=== PATIENT | male | born 1935 | race Caucasian/White ===

== ENCOUNTER 2017-11-11 08:19 | Inpatient (IN) | payer MEDICARE ==
[~2017-11-11] VITALS: Ht 175.3 cm; Wt 85.9 kg
[~2017-11-11 08:19] MED LIST: ATOR40TA PO; Aspirin EC81 MG PO; Avapro300 MG PO; CALCA500CH; CARV6.25 PO; CYAN500 PO; FERR325 PO; Flonase 0.05% N16 GM; Glimepiride4 MG PO; META800 PO; METF500C PO; TAMS.4ER PO; TRADJENTA5 MG PO; VITAMIN D-32000 UNIT; Valtrex1000 MG PO
[2017-11-11 09:23] LABS: Hematocrit 31.6 % (37.0-53.0); Hemoglobin 10.6 g/dL (13.5-17.5); Mean Corpuscular HGB 32.9 pg (26.0-34.0); Mean Corpuscular HGB Conc 33.5 g/dL (31.5-36.5); Mean Corpuscular Volume 98 fL (80-100); Mean Platelet Volume 9.1 fL (9.1-12.4); Platelet Count 189 K/mm3 (150-400); RDW Coefficient Variation 12.7 % (11.7-14.2); RDW Standard Deviation 45.6 fL (35.1-46.3); Red Blood Cell Count 3.22 M/mm3 (4.30-5.90); White Blood Cell Count 5.15 K/mm3 (4.00-11.30)
[2017-11-11 09:38] LABS: Alanine Aminotransfer (ALT/SGP 30 U/L (12-78); Albumin, Blood 3.5 g/dL (3.4-5.0); Albumin/Globulin Ratio 1.1 (0.8-1.8); Alk Phos 72 U/L (50-136); Anion Gap 10 mmol/L (6-16); Aspartate Aminotrans (AST/SGOT 21 U/L (12-37); Bilirubin, Total 0.5 mg/dL (0.1-1.0); Blood Urea Nitrogen 12 mg/dL (8-24); Bun/Creatinine Ratio 13.1 (12.0-20.0); CO2, Blood 24 mmol/L (21-32); Calcium, Blood 8.1 mg/dL (8.5-10.1); Chloride, Blood 98 mmol/L (98-108); Creatinine, Blood 0.92 mg/dL (0.60-1.20); Globulin, Blood 3.1 g/dL (2.2-4.0); Glomerular Filtration Rate >60 (60-); Glucose, Blood 123 mg/dL (70-99); International Normalized Ratio 1.07; Potassium, Blood 4.4 mmol/L (3.5-5.5); Prothrombin Time Results 11.1 Sec (9.7-11.5); Sodium, Blood 132 mmol/L (136-145); Total Protein, Blood 6.6 g/dL (6.4-8.2)
[2017-11-11 09:41] LABS: BAND PERCENT MAN 7 % (0-8); BASOPHILS PERCENT MAN 0 % (0-2); EOSINOPHILS ABSOLUTE MAN 0.05 K/mm3 (0.00-0.68); EOSINOPHILS PERCENT MAN 1 % (0-6); LYMPHOCYTES ABSOLUTE MAN 0.15 K/mm3 (0.84-5.20); LYMPHOCYTES PERCENT MAN 3 % (21-46); MONOCYTES PERCENT MAN 2 % (4-13); NEUTROPHILS ABSOLUTE MAN 4.84 K/mm3 (1.96-9.15); SEG NEUTROPHILS PERCENT MAN 87 % (41-73); TOTAL CELLS COUNTED 100
[2017-11-11 10:15] LABS: Source, Urine Clean Catch
[2017-11-11 10:21] LABS: Bilirubin, Urine Neg (Neg); Blood, Urine 5+ (Neg); Glucose Qualitative, Urine 1+ (Neg); Ketones, Urine Neg (Neg); Leukocyte Esterase, Urine 3+ (Neg); Nitrite, Urine Neg (Neg); Protein, Urine 2+ (Neg); Urobilinogen, Urine NORM (Normal)
[2017-11-11 10:29] LABS: Appearance, Urine Cloudy (Clear); Color, Urine Yellow (P-Yellow)
[2017-11-11 10:30] LABS: Bacteria Many /hpf
[2017-11-11 10:31] LABS: Red Blood Cells, Urine 25-50 /hpf (0-2)
[2017-11-11 10:33] LABS: Squamous Epithelial Cells Many /hpf (Few)
[2017-11-11 11:17] LABS: Source, Urine Catheter
[2017-11-11 11:20] LABS: Appearance, Urine Hazy (Clear); Bilirubin, Urine Neg (Neg); Blood, Urine 4+ (Neg); Color, Urine Yellow (P-Yellow); Glucose Qualitative, Urine 1+ (Neg); Ketones, Urine 1+ (Neg); Leukocyte Esterase, Urine 1+ (Neg); Nitrite, Urine Neg (Neg); Protein, Urine 2+ (Neg); Specific Gravity, Urine 1.015 (1.003-1.022); Urobilinogen, Urine NORM (Normal)
[2017-11-11 11:27] LABS: Hyaline Casts 0-2 /lpf (0-2)
[2017-11-11 11:29] LABS: Bacteria Rare /hpf; Squamous Epithelial Cells Rare /hpf (Few)
[2017-11-12 05:12] LABS: BASOPHILS ABSOLUTE AUTO 0.01 K/mm3 (0.00-0.23); BASOPHILS PERCENT AUTO 0 % (0-2); EOSINOPHILS PERCENT AUTO 3 % (0-6); Hematocrit 28.9 % (37.0-53.0); Hemoglobin 9.7 g/dL (13.5-17.5); IMMATURE GRAN ABSOLUTE AUTO 0.02 K/mm3 (0.00-0.10); IMMATURE GRAN PERCENT AUTO 1 % (0-1); LYMPHOCYTES ABSOLUTE AUTO 0.81 K/mm3 (0.84-5.20); LYMPHOCYTES PERCENT AUTO 25 % (21-46); MONOCYTES ABSOLUTE AUTO 0.35 K/mm3 (0.16-1.47); MONOCYTES PERCENT AUTO 11 % (4-13); Mean Corpuscular HGB 32.2 pg (26.0-34.0); Mean Corpuscular HGB Conc 33.6 g/dL (31.5-36.5); Mean Corpuscular Volume 96 fL (80-100); Mean Platelet Volume 8.6 fL (9.1-12.4); NEUTROPHILS ABSOLUTE AUTO 1.98 K/mm3 (1.96-9.15); NEUTROPHILS PERCENT AUTO 61 % (41-73); Platelet Count 160 K/mm3 (150-400); RDW Coefficient Variation 12.8 % (11.7-14.2); RDW Standard Deviation 45.7 fL (35.1-46.3); Red Blood Cell Count 3.01 M/mm3 (4.30-5.90); White Blood Cell Count 3.27 K/mm3 (4.00-11.30)
[2017-11-12 05:55] LABS: Anion Gap 10 mmol/L (6-16); Blood Urea Nitrogen 10 mg/dL (8-24); Bun/Creatinine Ratio 12.8 (12.0-20.0); CO2, Blood 25 mmol/L (21-32); Calcium, Blood 7.8 mg/dL (8.5-10.1); Chloride, Blood 95 mmol/L (98-108); Creatinine, Blood 0.78 mg/dL (0.60-1.20); Glomerular Filtration Rate >60 (60-); Glucose, Blood 179 mg/dL (70-99); Potassium, Blood 4.1 mmol/L (3.5-5.5); Sodium, Blood 130 mmol/L (136-145)
[2017-11-13 05:23] LABS: BASOPHILS PERCENT AUTO 0 % (0-2); EOSINOPHILS ABSOLUTE AUTO 0.14 K/mm3 (0.00-0.68); EOSINOPHILS PERCENT AUTO 7 % (0-6); Hematocrit 27.2 % (37.0-53.0); Hemoglobin 9.3 g/dL (13.5-17.5); IMMATURE GRAN ABSOLUTE AUTO 0.01 K/mm3 (0.00-0.10); IMMATURE GRAN PERCENT AUTO 1 % (0-1); LYMPHOCYTES ABSOLUTE AUTO 0.72 K/mm3 (0.84-5.20); LYMPHOCYTES PERCENT AUTO 35 % (21-46); MONOCYTES ABSOLUTE AUTO 0.18 K/mm3 (0.16-1.47); MONOCYTES PERCENT AUTO 9 % (4-13); Mean Corpuscular HGB 32.5 pg (26.0-34.0); Mean Corpuscular HGB Conc 34.2 g/dL (31.5-36.5); Mean Corpuscular Volume 95 fL (80-100); Mean Platelet Volume 9.1 fL (9.1-12.4); NEUTROPHILS ABSOLUTE AUTO 1.01 K/mm3 (1.96-9.15); NEUTROPHILS PERCENT AUTO 49 % (41-73); Platelet Count 158 K/mm3 (150-400); RDW Coefficient Variation 12.6 % (11.7-14.2); RDW Standard Deviation 44.4 fL (35.1-46.3); Red Blood Cell Count 2.86 M/mm3 (4.30-5.90); White Blood Cell Count 2.06 K/mm3 (4.00-11.30)
[2017-11-13 05:42] LABS: Anion Gap 9 mmol/L (6-16); Blood Urea Nitrogen 7 mg/dL (8-24); Bun/Creatinine Ratio 10.4 (12.0-20.0); CO2, Blood 26 mmol/L (21-32); Calcium, Blood 8.1 mg/dL (8.5-10.1); Chloride, Blood 95 mmol/L (98-108); Creatinine, Blood 0.67 mg/dL (0.60-1.20); Glomerular Filtration Rate >60 (60-); Glucose, Blood 184 mg/dL (70-99); Potassium, Blood 4.1 mmol/L (3.5-5.5); Sodium, Blood 130 mmol/L (136-145)
[2017-11-13] MEDS ORDERED: SACC250C PO (11:07)
[2017-11-13] MEDS ORDERED: CEFP200 PO (11:07)
== END 2017-11-13 11:45 | disposition home or self-care (01) | DRG 871 ==
LOC: ER 08:19 → MEDS 12:07 → ENPENDDIS 11-13 10:43 → MEDS 11-13 11:45
PROVIDERS: Internal Medicine
DX: A41.9 Sepsis, unspecified organism (principal); G92 Toxic encephalopathy; E87.1 Hypo-osmolality and hyponatremia; E11.9 Type 2 diabetes mellitus without complications; K52.9 Noninfective gastroenteritis and colitis, unspecified; R65.20 Severe sepsis without septic shock; E78.5 Hyperlipidemia, unspecified; I10 Essential (primary) hypertension; N40.0 Benign prostatic hyperplasia without lower urinary tract symptoms; Z74.09 Other reduced mobility; E66.9 Obesity, unspecified; Z68.28 Body mass index [BMI] 28.0-28.9, adult; Z88.8 Allergy status to other drugs, medicaments and biological substances; Z85.46 Personal history of malignant neoplasm of prostate; Z87.891 Personal history of nicotine dependence; Z79.84 Long term (current) use of oral hypoglycemic drugs; Z79.82 Long term (current) use of aspirin; Z79.899 Other long term (current) drug therapy
CPT/HCPCS: 36415; 71046; 71260; 80048; 80053; 81001; 82947; 83605; 84145; 85007; 85025; 85027; 85379; 85610; 87040; 87086; 93005; 93010; 96361; 96365; 96366; 96375; 97116; 97161; 97165; 97535; 99285; G8978; G8979; G8987; G8988; J0456; J0696; J1650; J1956; J2405; J3490; J7030; J7050; J7120; P9612; Q9967

== ENCOUNTER → 2018-05-21 | Outpatient (CLI) | payer MEDICARE ==
[~2018-05-21] MED LIST changes: +CEFP200 PO; +SACC250C PO
== END | disposition home or self-care (01) ==
LOC: PLD 14:03 → LAB SHORT 14:03
DX: L91.8 Other hypertrophic disorders of the skin (principal)
CPT/HCPCS: 88304

== ENCOUNTER → 2019-05-08 | Outpatient (CLI) | payer MEDICARE ==
[~2019-05-08] MED LIST changes: +BASAGLAR K100 UNIT/1 SC; +Bactrim Ds Tab1 EACH PO; +Humalog Mi100 UNIT/4 SC; +LIOT5 PO; +METF500 PO; -METF500C PO; +TELM80 PO; +VITAMIN D32000 UNI1 PO
== END ==
LOC: LAB SHORT 11:46 → LAB 11:46
DX: N39.0 Urinary tract infection, site not specified (principal)
CPT/HCPCS: 87086

== ENCOUNTER 2019-05-15 08:22 | Inpatient (IN) | payer MEDICARE ==
[~2019-05-15] VITALS: Ht 175.3 cm; Wt 87.6 kg
[~2019-05-15 08:22] MED LIST changes: -BASAGLAR K100 UNIT/1 SC; -Bactrim Ds Tab1 EACH PO; -Humalog Mi100 UNIT/4 SC; -LIOT5 PO; -TELM80 PO; -VITAMIN D32000 UNI1 PO
[2019-05-15 09:11] LABS: BASOPHILS ABSOLUTE AUTO 0.01 K/mm3 (0.00-0.23); BASOPHILS PERCENT AUTO 0 % (0-2); EOSINOPHILS ABSOLUTE AUTO 0.02 K/mm3 (0.00-0.68); EOSINOPHILS PERCENT AUTO 1 % (0-6); Hemoglobin 8.9 g/dL (13.5-17.5); IMMATURE GRAN ABSOLUTE AUTO 0.02 K/mm3 (0.00-0.10); IMMATURE GRAN PERCENT AUTO 1 % (0-1); LYMPHOCYTES PERCENT AUTO 8 % (21-46); MONOCYTES ABSOLUTE AUTO 0.25 K/mm3 (0.16-1.47); MONOCYTES PERCENT AUTO 7 % (4-13); Mean Corpuscular HGB 32.8 pg (26.0-34.0); Mean Corpuscular HGB Conc 34.2 g/dL (31.5-36.5); Mean Corpuscular Volume 96 fL (80-100); NEUTROPHILS ABSOLUTE AUTO 3.07 K/mm3 (1.96-9.15); NEUTROPHILS PERCENT AUTO 84 % (41-73); Platelet Count 155 K/mm3 (150-400); RDW Coefficient Variation 12.8 % (11.7-14.2); RDW Standard Deviation 44.5 fL (35.1-46.3); Red Blood Cell Count 2.71 M/mm3 (4.30-5.90); White Blood Cell Count 3.67 K/mm3 (4.00-11.30)
[2019-05-15 09:24] LABS: Alanine Aminotransfer (ALT/SGP 33 U/L (12-78); Albumin, Blood 3.2 g/dL (3.4-5.0); Albumin/Globulin Ratio 1.2 (0.8-1.8); Alk Phos 60 U/L (50-136); Anion Gap 7 mmol/L (6-16); Aspartate Aminotrans (AST/SGOT 30 U/L (12-37); Bilirubin, Total 0.5 mg/dL (0.1-1.0); Blood Urea Nitrogen 10 mg/dL (8-24); Bun/Creatinine Ratio 12.2 (12.0-20.0); CO2, Blood 22 mmol/L (21-32); Calcium, Blood 8.1 mg/dL (8.5-10.1); Chloride, Blood 92 mmol/L (98-108); Creatinine, Blood 0.82 mg/dL (0.60-1.20); Globulin, Blood 2.7 g/dL (2.2-4.0); Glomerular Filtration Rate >60 (60-); Glucose, Blood 93 mg/dL (70-99); Potassium, Blood 4.6 mmol/L (3.5-5.5); Sodium, Blood 121 mmol/L (136-145); Total Protein, Blood 5.9 g/dL (6.4-8.2)
[2019-05-15] MEDS ORDERED: Bactrim Ds Tab1 EACH PO (09:56)
[2019-05-15 11:45] LABS: Calcium, Ionized (POC) 1.11 mmol/L (1.10-1.46); Chloride (POC) 88 mmol/L (98-108); Creatinine (POC) 0.9 mg/dL (0.8-1.3); Glucose (ISTAT POC) 93 mg/dL (70-99); Hemoglobin (POC) 8.8 g/dL (13.5-17.5); Potassium (POC) 4.7 mmol/L (3.5-5.5); Sodium (POC) 119 mmol/L (135-148); Total CO2 (POC) 23 mmol/L (21-32)
[2019-05-15 11:48] LABS: Source, Urine Clean Catch
[2019-05-15 12:03] LABS: Bilirubin, Urine Neg (Neg); Blood, Urine 3+ (Neg); Glucose Qualitative, Urine Neg (Neg); Ketones, Urine Neg (Neg); Leukocyte Esterase, Urine 1+ (Neg); Nitrite, Urine Neg (Neg); Protein, Urine 2+ (Neg); Urobilinogen, Urine NORM (Normal)
[2019-05-15 12:15] LABS: Appearance, Urine Hazy (Clear); Color, Urine Yellow (P-Yellow)
[2019-05-15 12:16] LABS: Bacteria Rare /hpf; Squamous Epithelial Cells Few /hpf (Few)
[2019-05-15] MEDS ORDERED: TELM80 PO (12:22)
[2019-05-15 13:07] LABS: Percent Saturation 14.6 % (20.0-50.0)
[2019-05-15 13:13] LABS: Prostate Specific Antigen 0.116 ng/mL (0.000-4.000)
[2019-05-15] MEDS ORDERED: VITAMIN D32000 UNI1 PO (14:38)
[2019-05-15] MEDS ORDERED: CYAN500 PO (14:38)
--- NOTE | 2019-05-15 15:57 | NUR ---
ASSUMED CARE: BED ALARM ON, PT RESTING IN BED. DISCUSSED WITH DR PATEL LATEST SODIUM RESULT. ORDERS FOR PT TO REMAIN SALINE LOCKED AT THIS TIME.
--- NOTE | 2019-05-15 18:03 | NUR ---
SHIFT SUMMARY: PT RESTING QUIETLY AT THIS TIME. WAS AT BEDSIDE BUT LEFT. BED ALARM ON. STATED HE WAS HAVING ABDOMINAL CRAMPING DUE TO DIARRHEA. ORDER FOR STOOL SAMPLE IF BECOMES AVAILABLE.
--- NOTE | 2019-05-16 03:54 | NUR ---
Shift summary: Pt has had good night and no c/o discomfort. Na = 119 and the MD was notified of this. Pt had one episode of diarhea but was unable to get sample. It all soaked into the attends. Pt incontinent of both urine and stool.
[2019-05-16 04:48] LABS: BASOPHILS ABSOLUTE AUTO 0.01 K/mm3 (0.00-0.23); BASOPHILS PERCENT AUTO 0 % (0-2); EOSINOPHILS ABSOLUTE AUTO 0.02 K/mm3 (0.00-0.68); EOSINOPHILS PERCENT AUTO 1 % (0-6); Hematocrit 29.9 % (37.0-53.0); Hemoglobin 10.3 g/dL (13.5-17.5); IMMATURE GRAN ABSOLUTE AUTO 0.03 K/mm3 (0.00-0.10); IMMATURE GRAN PERCENT AUTO 1 % (0-1); LYMPHOCYTES ABSOLUTE AUTO 0.39 K/mm3 (0.84-5.20); LYMPHOCYTES PERCENT AUTO 11 % (21-46); MONOCYTES ABSOLUTE AUTO 0.25 K/mm3 (0.16-1.47); MONOCYTES PERCENT AUTO 7 % (4-13); Mean Corpuscular HGB 32.6 pg (26.0-34.0); Mean Corpuscular HGB Conc 34.4 g/dL (31.5-36.5); Mean Corpuscular Volume 95 fL (80-100); Mean Platelet Volume 9.1 fL (9.1-12.4); NEUTROPHILS ABSOLUTE AUTO 2.95 K/mm3 (1.96-9.15); NEUTROPHILS PERCENT AUTO 81 % (41-73); Platelet Count 173 K/mm3 (150-400); RDW Coefficient Variation 12.8 % (11.7-14.2); RDW Standard Deviation 44.3 fL (35.1-46.3); Red Blood Cell Count 3.16 M/mm3 (4.30-5.90); White Blood Cell Count 3.65 K/mm3 (4.00-11.30)
[2019-05-16 05:17] LABS: Alanine Aminotransfer (ALT/SGP 40 U/L (12-78); Albumin, Blood 3.5 g/dL (3.4-5.0); Albumin/Globulin Ratio 1.1 (0.8-1.8); Alk Phos 77 U/L (50-136); Anion Gap 11 mmol/L (6-16); Aspartate Aminotrans (AST/SGOT 36 U/L (12-37); Bilirubin, Total 0.7 mg/dL (0.1-1.0); Blood Urea Nitrogen 11 mg/dL (8-24); Bun/Creatinine Ratio 14.1 (12.0-20.0); CO2, Blood 23 mmol/L (21-32); Calcium, Blood 8.5 mg/dL (8.5-10.1); Chloride, Blood 88 mmol/L (98-108); Creatinine, Blood 0.78 mg/dL (0.60-1.20); Globulin, Blood 3.1 g/dL (2.2-4.0); Glomerular Filtration Rate >60 (60-); Glucose, Blood 168 mg/dL (70-99); Potassium, Blood 3.9 mmol/L (3.5-5.5); Sodium, Blood 122 mmol/L (136-145); Total Protein, Blood 6.6 g/dL (6.4-8.2)
[2019-05-16 10:18] LABS: Creatine Kinase MB 7.1 ng/mL (0.0-3.6); Creatine Kinase MB Index 1.5 (0.0-4.0)
[2019-05-16 16:07] LABS: Adenovirus F 40/41 Not Detected (NOT DETECT); Astrovirus Not Detected (NOT DETECT); Campylobacter Sp Not Detected (NOT DETECT); Cryptosporidium Not Detected (NOT DETECT); Cyclospora Cayetanensis Not Detected (NOT DETECT); E. Coli O157 Not Detected (NOT DETECT); Entamoeba Histolytica Not Detected (NOT DETECT); Enteroaggregative E. coli-EAEC Not Detected (NOT DETECT); Enteropathogenic E. coli-EPEC Not Detected (NOT DETECT); Enterotoxigenic E. coli-ETEC Not Detected (NOT DETECT); Giardia Lamblia Not Detected (NOT DETECT); Norovirus GI/GII Not Detected (NOT DETECT); Plesiomonas Shigelloides Not Detected (NOT DETECT); Rotavirus A Not Detected (NOT DETECT); Salmonella Sp Not Detected (NOT DETECT); Shiga Toxin-prod E. coli-STEC Not Detected (NOT DETECT); Shigella/Enteroin E. coli-EIEC Not Detected (NOT DETECT); Vibrio Cholerae Not Detected (NOT DETECT); Vibrio Sp Not Detected (NOT DETECT); Yersinia Enterocolitica Not Detected (NOT DETECT)
[2019-05-16 16:08] LABS: Sapovirus Not Detected (NOT DETECT)
--- NOTE | 2019-05-16 18:09 | NUR ---
SHIFT SUMMARY PATIENT IS A&OX3 WITH DELAYED SPEECH AT TIMES. PT IS VERY WEAK BUT ABLE TO TRANSFER TO THE COMMODE WITH GAIT BELT AND 2 ASSIST. PT INCONTINENT OF BOWEL AND BLADDER MOST OF THE TIME. URINE SAMPLE WAS OBTAINED IN CLEAN URINAL. PT HAVING BASICALLY LIQUID STOOL, SAMPLE OBTAINED IN HAT IN COMMODE, MAY HAVE BEEN SLIGHTLY CONTAMINATED WITH URINE. DR PATEL AWARE OF STOOL, IMODIUM ORDERED. PTS STATES HE HAS LOOSE STOOLS CHRONICALLY THAT VARIES WITH WHAT HE EATS/WHAT MEDS HE'S TAKING AND STATES THAT PEPTO BISMOL OR MEDS SIMILAR TO IMODIUM HAS HELPED. INNER BUTTOCKS ARE SLIGHTLY RAW AND REDDENED, SITE CLEANED AND BLUE CREAM APPLIED. LACTIC ACID WAS CHECKED TWICE, BOTH RESULTED 2.3. 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 DM2 MEDS DISCONTINUED, HUMALOG AND CBG CHECKS ORDERED AC. PT HAS ABRASION TO L ELBOW, BANDAIDS C/D/I.
--- NOTE | 2019-05-17 03:49 | NUR ---
Shift summary: Pt slept well overnight with no c/o discomfort. Pt alert, oriented and appropriate last pm. Pt remains a 1-2 person asist to get to bedside commode. No episodes of diarhea last pm.
[2019-05-17 05:49] LABS: Anion Gap 8 mmol/L (6-16); Blood Urea Nitrogen 15 mg/dL (8-24); Bun/Creatinine Ratio 18.6 (12.0-20.0); CO2, Blood 24 mmol/L (21-32); Calcium, Blood 8.2 mg/dL (8.5-10.1); Chloride, Blood 90 mmol/L (98-108); Creatinine, Blood 0.81 mg/dL (0.60-1.20); Free Thyroxine 1.17 ng/dL (0.70-1.60); Glomerular Filtration Rate >60 (60-); Glucose, Blood 157 mg/dL (70-99); Potassium, Blood 3.4 mmol/L (3.5-5.5); Sodium, Blood 122 mmol/L (136-145)
[2019-05-17 05:54] LABS: Triiodothyronine, Free 1.61 pg/mL (2.18-3.98)
--- NOTE | 2019-05-17 17:12 | NUR ---
SHIFT SUMMARY PATIENT IS ALERT AND ORIENTED X4 TODAY, USING CALL BUTTON APPROPRIATELY. HE SEEMS MORE MOTIVATED TO GET UP/DO EXERCISES INSTRUCTED BY YASH. THE DAY PROGRESSED, PT BECAME BETTER ABLE TO WALK TO THE BATHROOM WITH FWW AND GAIT BELT WITH 1 PERSON CONTACT GUARD ASSIST. PT WILL STILL LEAN BACK AT TIMES AND COULD LOSE BALANCE. PT HAD A SMALL AMOUNT OF LOOSE STOOL MULTIPLE TIMES TODAY, IMODIUM GIVEN. BLUE CREAM APPLIED TO BUTTOCKS TWICE. PT'S VISITED DURING LUNCH AND PT'S AND PT WAS EDUCATED ON HOW TO USE INSULIN PEN. ALL STEPS EXPLAINED AND DEMONSTRATED TO PT'S , SLIDING SCALE IN CHART SHOWN TO PT'S .
--- NOTE | 2019-05-18 04:16 | NUR ---
Shift summary: Pt was able to sleep most of shift with no c/o discomfort. Pt up to bathroom x2 during night. Pt only requiring 1 person assist with gait belt. Pt states he's feeling stronger. Pt alert, oriented and appropriate. VSS.
[2019-05-18 04:35] LABS: BASOPHILS ABSOLUTE AUTO 0.01 K/mm3 (0.00-0.23); BASOPHILS PERCENT AUTO 0 % (0-2); EOSINOPHILS ABSOLUTE AUTO 0.14 K/mm3 (0.00-0.68); EOSINOPHILS PERCENT AUTO 4 % (0-6); Hematocrit 26.4 % (37.0-53.0); Hemoglobin 9.4 g/dL (13.5-17.5); IMMATURE GRAN ABSOLUTE AUTO 0.02 K/mm3 (0.00-0.10); IMMATURE GRAN PERCENT AUTO 1 % (0-1); LYMPHOCYTES ABSOLUTE AUTO 0.85 K/mm3 (0.84-5.20); LYMPHOCYTES PERCENT AUTO 24 % (21-46); MONOCYTES PERCENT AUTO 11 % (4-13); Mean Corpuscular HGB 32.3 pg (26.0-34.0); Mean Corpuscular HGB Conc 35.6 g/dL (31.5-36.5); Mean Platelet Volume 9.1 fL (9.1-12.4); NEUTROPHILS ABSOLUTE AUTO 2.15 K/mm3 (1.96-9.15); NEUTROPHILS PERCENT AUTO 60 % (41-73); Platelet Count 163 K/mm3 (150-400); RDW Coefficient Variation 12.7 % (11.7-14.2); RDW Standard Deviation 42.5 fL (35.1-46.3); Red Blood Cell Count 2.91 M/mm3 (4.30-5.90); White Blood Cell Count 3.57 K/mm3 (4.00-11.30)
[2019-05-18 04:38] LABS: Mean Corpuscular Volume 91 fL (80-100)
[2019-05-18 04:54] LABS: Anion Gap 10 mmol/L (6-16); Blood Urea Nitrogen 14 mg/dL (8-24); Bun/Creatinine Ratio 19.7 (12.0-20.0); CO2, Blood 23 mmol/L (21-32); Calcium, Blood 8.7 mg/dL (8.5-10.1); Chloride, Blood 92 mmol/L (98-108); Creatinine, Blood 0.71 mg/dL (0.60-1.20); Glomerular Filtration Rate >60 (60-); Glucose, Blood 229 mg/dL (70-99); Potassium, Blood 3.5 mmol/L (3.5-5.5); Sodium, Blood 125 mmol/L (136-145)
--- NOTE | 2019-05-18 13:20 | NUR ---
NEW SKIN TEAR/BRUISE 1255 - PATIENT AMBULATED TO BATHROOM WITH FWW AND 1 ASSIST -CONTACT GUARD. PATIENT WAS TURNING/SITTING DOWN ON TOILET AND FELL BACK, HITTING HIS BACK ON TOILET PIPES BEHIND SEAT. IT LEFT A SLIGHT SCRAPE/INDENTATION ON HIS MID LEFT BACK AND WILL PROBABLY FORM A BRUISE. THERE IS ALSO A SMALL SKIN TEAR ON THE RIGHT OUTER FOREARM, ABOUT 1 INCH BY 1/2 INCH. SITE CLEANED, TORN SKIN PLACED BACK INTO PLACE. ABX OINTMENT AND BANDAID APPLIED. PT DENIES ANY PAIN AT THIS TIME. PATIENT'S AWARE. NEON PUMPER NOTIFIED.
--- NOTE | 2019-05-18 19:18 | NUR ---
SHIFT SUMMARY PATIENT A&OX4. SEE NOTE ABOUT AMBULATION AND NEW WOUNDS TODAY. SODIUM LEVEL IMPROVED TO 125. BLOOD SUGARS HAVE BEEN HIGH TODAY, SCHEDULED SS INSULIN GIVEN. PATIENT AND SHOWN HOW TO PREP AND ADMINISTER INSULIN FROM PEN. PATIENT ONLY EATING ABOUT HALF OR LESS OF MEALS. PATIENT USING CALL LIGHT APPROPRIATELY.
--- NOTE | 2019-05-19 04:17 | NUR ---
Shift summary: Pt states he's feeling stronger. VSS. No c/o discomfort. Slept most of night. No episodes of diarhea. Pt is a one person assist. Pt anticipating a probable d/c in am.
[2019-05-19 06:02] LABS: Anion Gap 7 mmol/L (6-16); Blood Urea Nitrogen 11 mg/dL (8-24); Bun/Creatinine Ratio 17.6 (12.0-20.0); CO2, Blood 26 mmol/L (21-32); Calcium, Blood 8.5 mg/dL (8.5-10.1); Chloride, Blood 94 mmol/L (98-108); Creatinine, Blood 0.62 mg/dL (0.60-1.20); Glomerular Filtration Rate >60 (60-); Glucose, Blood 220 mg/dL (70-99); Potassium, Blood 3.9 mmol/L (3.5-5.5); Sodium, Blood 127 mmol/L (136-145)
--- NOTE | 2019-05-19 07:23 | NUR ---
ASSUMED CARE OF PT- RECIEVED REPORT WITH NIGHT RN COCO. PT SLEEPING SOUNDLY AT SHIFT CHANGE. PER REPORT PT HAS BEEN ASKING TO GO HOME FOR A DAY OR SO. WAS ADMITTED FOR LOW SODIUM. PT SODIUM HAS COME UP BUT MAY NOT REACH THE NORMAL RANGE. POSSIBLE DC PER REPORT. WILL SPEAK TO DR ON MORNING ROUNDS FOR CLARIFICATION.
[2019-05-19] MEDS ORDERED: BASAGLAR K100 UNIT/1 SC (13:35)
[2019-05-19] MEDS ORDERED: Humalog Mi100 UNIT/4 SC (13:36)
[2019-05-19] MEDS ORDERED: LIOT5 PO (13:38)
--- NOTE | 2019-05-19 14:59 | NUR ---
DISCHARGE NOTE- PT DISCHARGED HOME WITH HOME HEALTH. PT SPOUSE PRESENT FOR DISCHARGE TEACHING PROVIDED BY DRY HEAT CABINET ATTENDANT LORI. PT WAS ESCORTED OUT VIA W/C BY STAFF. IV DC'D AT THE TIME OF DISCHARGE. MEDS FAXED TO [facility] PER PT REQUEST D/T CRISTOPHER CLOSURES.
== END 2019-05-19 14:12 | disposition home health service (06) | DRG 643 ==
LOC: ER 08:22 → MEDS 08:23 → ENPENDDIS 05-19 11:06 → MEDS 05-19 14:12
PROVIDERS: Emergency Medicine; ADMIT Internal Medicine
DX: E22.2 Syndrome of inappropriate secretion of antidiuretic hormone (principal); G92 Toxic encephalopathy; E87.2 Acidosis; E11.9 Type 2 diabetes mellitus without complications; E03.9 Hypothyroidism, unspecified; D63.8 Anemia in other chronic diseases classified elsewhere; D50.9 Iron deficiency anemia, unspecified; Z85.46 Personal history of malignant neoplasm of prostate; E78.5 Hyperlipidemia, unspecified; I10 Essential (primary) hypertension; Z87.891 Personal history of nicotine dependence; G25.71 Drug induced akathisia; T37.0X5A Adverse effect of sulfonamides, initial encounter; Z87.440 Personal history of urinary (tract) infections; E87.6 Hypokalemia
CPT/HCPCS: 0097U; 36415; 51798; 71046; 80047; 80048; 80053; 81001; 82550; 82553; 82728; 82947; 83540; 83550; 83605; 83930; 83935; 84300; 84439; 84481; 85014; 85025; 87086; 93005; 93010; 96372; 97110; 97116; 97162; 97530; 99284-25; G0103; G0378; J1650; J7030

== ENCOUNTER → 2019-07-17 | Outpatient (CLI) | payer MEDICARE ==
[~2019-07-17] MED LIST changes: +BASAGLAR K100 UNIT/1 SC; +Bactrim Ds Tab1 EACH PO; +Humalog Mi100 UNIT/4 SC; +LIOT5 PO; +TELM80 PO; +VITAMIN D32000 UNI1 PO
[2019-07-17 15:22] LABS: Creatinine Urine 62.3 mg/dL (27.00-270.00); Protein, Urine Quantitative 11.3 mg/dL (0.0-11.9)
[2019-07-17 15:26] LABS: Microalbumin, Urine Quant. 73.4 mg/L (0.000-20.000)
== END | disposition home or self-care (01) ==
LOC: LAB SHORT 11:05 → LAB 11:05
PROVIDERS: Internal Medicine Nephrology
DX: N18.2 Chronic kidney disease, stage 2 (mild) (principal); D63.1 Anemia in chronic kidney disease; N25.81 Secondary hyperparathyroidism of renal origin; E55.9 Vitamin D deficiency, unspecified; E78.00 Pure hypercholesterolemia, unspecified; N40.1 Benign prostatic hyperplasia with lower urinary tract symptoms; D51.8 Other vitamin B12 deficiency anemias; R76.9 Abnormal immunological finding in serum, unspecified; R94.5 Abnormal results of liver function studies; R94.6 Abnormal results of thyroid function studies
CPT/HCPCS: 81050; 82043; 82570; 84156; 84300

== ENCOUNTER 2019-09-21 08:42 | Emergency (ER) | payer MEDICARE ==
[~2019-09-21] VITALS: Ht 175.3 cm; Wt 79.4 kg
[2019-09-21 09:00] LABS: Calcium, Ionized (POC) 1.12 mmol/L (1.10-1.46); Chloride (POC) 95 mmol/L (98-108); Glucose (ISTAT POC) 211 mg/dL (70-99); Hemoglobin (POC) 11.9 g/dL (13.5-17.5); Potassium (POC) 4.2 mmol/L (3.5-5.5); Sodium (POC) 129 mmol/L (135-148); Total CO2 (POC) 24 mmol/L (21-32)
[2019-09-21 09:15] LABS: BASOPHILS ABSOLUTE AUTO 0.02 K/mm3 (0.00-0.23); BASOPHILS PERCENT AUTO 0 % (0-2); EOSINOPHILS ABSOLUTE AUTO 0.13 K/mm3 (0.00-0.68); EOSINOPHILS PERCENT AUTO 2 % (0-6); Hematocrit 35.5 % (37.0-53.0); Hemoglobin 11.4 g/dL (13.5-17.5); IMMATURE GRAN ABSOLUTE AUTO 0.02 K/mm3 (0.00-0.10); IMMATURE GRAN PERCENT AUTO 0 % (0-1); LYMPHOCYTES ABSOLUTE AUTO 1.07 K/mm3 (0.84-5.20); LYMPHOCYTES PERCENT AUTO 17 % (21-46); MONOCYTES ABSOLUTE AUTO 0.41 K/mm3 (0.16-1.47); MONOCYTES PERCENT AUTO 7 % (4-13); Mean Corpuscular HGB 30.9 pg (26.0-34.0); Mean Corpuscular HGB Conc 32.1 g/dL (31.5-36.5); Mean Corpuscular Volume 96 fL (80-100); Mean Platelet Volume 9.1 fL (9.1-12.4); NEUTROPHILS ABSOLUTE AUTO 4.68 K/mm3 (1.96-9.15); NEUTROPHILS PERCENT AUTO 74 % (41-73); Platelet Count 194 K/mm3 (150-400); RDW Coefficient Variation 12.8 % (11.7-14.2); RDW Standard Deviation 45.4 fL (35.1-46.3); Red Blood Cell Count 3.69 M/mm3 (4.30-5.90); White Blood Cell Count 6.33 K/mm3 (4.00-11.30)
[2019-09-21 09:28] LABS: Alanine Aminotransfer (ALT/SGP 28 U/L (12-78); Albumin, Blood 3.7 g/dL (3.4-5.0); Albumin/Globulin Ratio 1.1 (0.8-1.8); Alk Phos 108 U/L (50-136); Anion Gap 11 mmol/L (6-16); Aspartate Aminotrans (AST/SGOT 19 U/L (12-37); Bilirubin, Total 0.4 mg/dL (0.1-1.0); Blood Urea Nitrogen 13 mg/dL (8-24); CO2, Blood 23 mmol/L (21-32); Calcium, Blood 8.8 mg/dL (8.5-10.1); Chloride, Blood 97 mmol/L (98-108); Creatinine, Blood 0.93 mg/dL (0.60-1.20); Globulin, Blood 3.4 g/dL (2.2-4.0); Glomerular Filtration Rate >60 (60-); Glucose, Blood 207 mg/dL (70-99); Potassium, Blood 4.2 mmol/L (3.5-5.5); Sodium, Blood 131 mmol/L (136-145); Total Protein, Blood 7.1 g/dL (6.4-8.2); Troponin I <0.015 ng/mL (0.000-0.040)
== END 2019-09-21 11:01 | disposition home or self-care (01) ==
LOC: ER 08:42
PROVIDERS: Emergency Medicine
DX: R55 Syncope and collapse (principal); E11.9 Type 2 diabetes mellitus without complications; I10 Essential (primary) hypertension; Z88.8 Allergy status to other drugs, medicaments and biological substances; Z79.899 Other long term (current) drug therapy; Z79.4 Long term (current) use of insulin; Z87.891 Personal history of nicotine dependence
CPT/HCPCS: 36415; 80047; 80053; 84484; 85014; 85025; 93005; 93010; 96360; 99284-25; J7030

== ENCOUNTER → 2019-11-07 | Outpatient (CLI) | payer MEDICARE ==
[2019-11-07 15:04] LABS: Stool Occult Bld Immuno 1 Negative (NEGATIVE)
== END ==
LOC: LAB SHORT 10:32 → LAB 10:32
PROVIDERS: Family Medicine
DX: D64.89 Other specified anemias (principal)
CPT/HCPCS: 82274

== ENCOUNTER 2020-07-16 11:07 | Day surgery (SDC) | payer MEDICARE ==
[~2020-07-16] VITALS: Ht 175.3 cm; Wt 80.8 kg
[~2020-07-16 11:07] MED LIST changes: +FERSU300 PO; +Vitamin D2000 UNIT PO
--- NOTE | 2020-07-16 14:16 | NUR ---
07/16/20 1416 Aurora Roy 11CC OF SALINE WAS INJECTED INTO THE LARGER POLYPS TO AID IN REMOVAL. PATIENT TOLERATED THIS WELL.
== END 2020-07-16 14:25 | disposition home or self-care (01) ==
LOC: ORSCSDS 11:07
PROVIDERS: Internal Medicine Gastroenterology
PROC: 0DBN8ZX Excision of Sigmoid Colon, Via Natural or Artificial Opening Endoscopic, Diagnostic (ICD-10-PCS; principal; 2020-07-16 12:45)
PROC: 0DBL8ZX Excision of Transverse Colon, Via Natural or Artificial Opening Endoscopic, Diagnostic (ICD-10-PCS; principal; 2020-07-16 12:45)
DX: Z12.11 Encounter for screening for malignant neoplasm of colon (principal); Z86.010 Personal history of colon polyps; D12.3 Benign neoplasm of transverse colon; D12.5 Benign neoplasm of sigmoid colon; K57.30 Diverticulosis of large intestine without perforation or abscess without bleeding; K64.4 Residual hemorrhoidal skin tags; Z87.891 Personal history of nicotine dependence; E11.9 Type 2 diabetes mellitus without complications; I10 Essential (primary) hypertension; Z79.4 Long term (current) use of insulin; E78.5 Hyperlipidemia, unspecified; Z79.899 Other long term (current) drug therapy
CPT/HCPCS: 82947; 88305; J2704; J7120

== ENCOUNTER → 2020-11-15 | Outpatient (CLI) | payer MEDICARE | END | disposition home or self-care (01) | LOC: LAB 11:08 → LAB SHORT 11:08 | DX: D22.5 Melanocytic nevi of trunk (principal) | CPT/HCPCS: 88305 ==

== ENCOUNTER → 2021-05-18 | Outpatient (CLI) | payer MEDICARE ==
[~2021-05-18] MED LIST changes: +CEFD300 PO; +LEVEMIR FL100 UNIT/2 SC; +SULTRIDS PO; +VISBIOME 112.51 EACH PO
[2021-05-19 12:18] LABS: Source, Urine Clean Catch
[2021-05-19 13:05] LABS: Appearance, Urine Clear (Clear); Bilirubin, Urine Neg (Neg); Blood, Urine 4+ (Neg); Color, Urine Yellow (P-Yellow); Glucose Qualitative, Urine 1+ (Neg); Ketones, Urine Neg (Neg); Leukocyte Esterase, Urine 3+ (Neg); Nitrite, Urine Neg (Neg); Protein, Urine 3+ (Neg); Urobilinogen, Urine NORM (Normal); pH, Urine 6.5 (5.0-8.0)
[2021-05-19 13:32] LABS: Bacteria Many /hpf; Squamous Epithelial Cells Few /hpf (Few); White Blood Cells, Urine 50-100 /hpf (0-5)
== END | disposition home or self-care (01) ==
LOC: LAB 11:00 → LAB SHORT 11:00
PROVIDERS: Family Medicine
DX: R30.9 Painful micturition, unspecified (principal)
CPT/HCPCS: 81001; 87077; 87086; 87186

== ENCOUNTER 2021-05-20 13:10 | Inpatient (IN) | payer MEDICARE ==
[~2021-05-20] VITALS: Ht 172.7 cm; Wt 99.8 kg
[~2021-05-20 13:10] MED LIST changes: -CEFD300 PO; -LEVEMIR FL100 UNIT/2 SC; -SULTRIDS PO; -VISBIOME 112.51 EACH PO
[2021-05-20 13:48] LABS: BASOPHILS ABSOLUTE AUTO 0.02 K/mm3 (0.00-0.23); BASOPHILS PERCENT AUTO 0 % (0-2); EOSINOPHILS PERCENT AUTO 0 % (0-6); Hematocrit 31.1 % (37.0-53.0); Hemoglobin 10.8 g/dL (13.5-17.5); IMMATURE GRAN ABSOLUTE AUTO 0.06 K/mm3 (0.00-0.10); IMMATURE GRAN PERCENT AUTO 1 % (0-1); LYMPHOCYTES ABSOLUTE AUTO 0.57 K/mm3 (0.84-5.20); LYMPHOCYTES PERCENT AUTO 9 % (21-46); MONOCYTES PERCENT AUTO 6 % (4-13); Mean Corpuscular HGB 31.4 pg (26.0-34.0); Mean Corpuscular HGB Conc 34.7 g/dL (31.5-36.5); Mean Corpuscular Volume 90 fL (80-100); Mean Platelet Volume 8.7 fL (9.1-12.4); NEUTROPHILS ABSOLUTE AUTO 5.19 K/mm3 (1.96-9.15); NEUTROPHILS PERCENT AUTO 83 % (41-73); Platelet Count 221 K/mm3 (150-400); RDW Coefficient Variation 12.9 % (11.7-14.2); RDW Standard Deviation 42.4 fL (35.1-46.3); Red Blood Cell Count 3.44 M/mm3 (4.30-5.90); White Blood Cell Count 6.24 K/mm3 (4.00-11.30)
[2021-05-20 14:16] LABS: Albumin, Blood 2.9 g/dL (3.4-5.0); Albumin/Globulin Ratio 0.8 (0.8-1.8); Bilirubin, Total 0.6 mg/dL (0.1-1.0); Bun/Creatinine Ratio 17.4 (12.0-20.0); Calcium, Blood 7.9 mg/dL (8.5-10.1); Creatinine, Blood 1.32 mg/dL (0.60-1.20); Globulin, Blood 3.6 g/dL (2.2-4.0); Potassium, Blood 4.5 mmol/L (3.5-5.5); Total Protein, Blood 6.5 g/dL (6.4-8.2)
[2021-05-20] MEDS ORDERED: LEVEMIR FL100 UNIT/2 SC (16:04)
[2021-05-20] MEDS ORDERED: TAMS.4ER PO (16:05)
[2021-05-20] MEDS ORDERED: SULTRIDS PO (16:05)
[2021-05-20] MEDS ORDERED: ATOR40TA PO (16:05)
[2021-05-20 16:06] LABS: SARS-Cov-2 (COVID-19) PCR, MMC NEGATIVE (NEGATIVE)
--- NOTE | 2021-05-20 18:19 | NUR ---
SHIFT SUMMARY PT IS AO. PT ADMITTED TO ROOM THIS PEDRO. PT IS ON RA. PT DENIES PAIN, N/V, SOB. PT IS ONE ASSIST WITH FWW. PT IS IN BED, CALL LIGHT IN REACH, LOW POSITION.
[2021-05-21 05:05] LABS: Hematocrit 28.8 % (37.0-53.0); Hemoglobin 9.9 g/dL (13.5-17.5); Mean Corpuscular HGB 31.5 pg (26.0-34.0); Mean Corpuscular HGB Conc 34.4 g/dL (31.5-36.5); Mean Corpuscular Volume 92 fL (80-100); Mean Platelet Volume 8.9 fL (9.1-12.4); Platelet Count 194 K/mm3 (150-400); RDW Coefficient Variation 13.1 % (11.7-14.2); RDW Standard Deviation 43.7 fL (35.1-46.3); Red Blood Cell Count 3.14 M/mm3 (4.30-5.90)
[2021-05-21 05:40] LABS: Anion Gap 11 mmol/L (6-16); Blood Urea Nitrogen 20 mg/dL (8-24); Bun/Creatinine Ratio 17.5 (12.0-20.0); CO2, Blood 21 mmol/L (21-32); Calcium, Blood 7.2 mg/dL (8.5-10.1); Chloride, Blood 97 mmol/L (98-108); Creatinine, Blood 1.14 mg/dL (0.60-1.20); Glomerular Filtration Rate >60 (60-); Glucose, Blood 156 mg/dL (70-99); Potassium, Blood 4.1 mmol/L (3.5-5.5); Sodium, Blood 129 mmol/L (136-145)
[2021-05-21 06:37] LABS: BAND PERCENT MAN 10 % (0-8); BASOPHILS PERCENT MAN 0 % (0-2); EOSINOPHILS PERCENT MAN 0 % (0-6); LYMPHOCYTES ABSOLUTE MAN 0.33 K/mm3 (0.84-5.20); LYMPHOCYTES PERCENT MAN 5 % (21-46); METAMYELOCYTE ABSOLUTE MAN 0.06 K/mm3 (0.00-0.00); METAMYELOCYTE PERCENT MAN 1 % (0-0); MONOCYTES ABSOLUTE MAN 0.39 K/mm3 (0.16-1.47); MONOCYTES PERCENT MAN 6 % (4-13); SEG NEUTROPHILS PERCENT MAN 78 % (41-73); TOTAL CELLS COUNTED 100
--- NOTE | 2021-05-21 06:43 | NUR ---
SHIFT SUMMARY PATIENT ALERT AND ORIENTED X3. HAD NO COMPLAINTS OF PAIN OR SHORTNESS OF BREATH. NO ACUTE ISSUES NOTED OVERNIGHT. CALL LIGHT WITHIN REACH. REPORT GIVEN TO ONCOMING RN.
--- NOTE | 2021-05-21 14:17 | NUR ---
PT IS AO X 3 PT IS ON RA, PT DENIES PAIN, N/V, SOB, PT HAD A FEVER 101.0 IN THE AM, MEDICATED WITH TYLENOL, FEVER WENT DOWN TO 98.8 PT HAVE A POLANCO, PT IS IN BED, BED IN LOW POSITION, CALL LIGHT WITHIN REACH.
--- NOTE | 2021-05-21 19:54 | NUR ---
PHYSICIAN COMMUNICATION NOTIFIED ENERGY DERIVATIVES TRADER PHYSICIAN, DR JAIME, OF POSITIVE BLOOD CULTURES RESULTING IN GRAM NEGATIVE BACILLI FOR PATIENT. NOTIFIED HIM THAT THE PATIENT IS CURRENTLY ON 1,000 MG IV ROCEPHIN DAILY AND THAT THE PHARMACIST INDICATED THAT IT IS SUCEPTIBLE TO ROCEPHIN. DR JAIME GAVE NO NEW ORDERS AND SAID TO CONTINUE WITH CURRENT COURSE OF TREATMENT.
[2021-05-22 05:57] LABS: BASOPHILS ABSOLUTE AUTO 0.02 K/mm3 (0.00-0.23); BASOPHILS PERCENT AUTO 0 % (0-2); Hematocrit 25.1 % (37.0-53.0); Hemoglobin 8.5 g/dL (13.5-17.5); LYMPHOCYTES ABSOLUTE AUTO 0.59 K/mm3 (0.84-5.20); LYMPHOCYTES PERCENT AUTO 7 % (21-46); MONOCYTES ABSOLUTE AUTO 0.53 K/mm3 (0.16-1.47); MONOCYTES PERCENT AUTO 7 % (4-13); Mean Corpuscular HGB 31.4 pg (26.0-34.0); Mean Corpuscular HGB Conc 33.9 g/dL (31.5-36.5); Mean Corpuscular Volume 93 fL (80-100); Mean Platelet Volume 8.9 fL (9.1-12.4); Platelet Count 157 K/mm3 (150-400); RDW Coefficient Variation 13.4 % (11.7-14.2); RDW Standard Deviation 45.2 fL (35.1-46.3); Red Blood Cell Count 2.71 M/mm3 (4.30-5.90); White Blood Cell Count 8.18 K/mm3 (4.00-11.30)
[2021-05-22 06:00] LABS: EOSINOPHILS ABSOLUTE AUTO 0.08 K/mm3 (0.00-0.68); EOSINOPHILS PERCENT AUTO 1 % (0-6); IMMATURE GRAN ABSOLUTE AUTO 0.05 K/mm3 (0.00-0.10); IMMATURE GRAN PERCENT AUTO 1 % (0-1); NEUTROPHILS ABSOLUTE AUTO 6.91 K/mm3 (1.96-9.15); NEUTROPHILS PERCENT AUTO 85 % (41-73)
[2021-05-22 06:17] LABS: Bun/Creatinine Ratio 18.9 (12.0-20.0); Calcium, Blood 6.7 mg/dL (8.5-10.1); Creatinine, Blood 1.32 mg/dL (0.60-1.20); Potassium, Blood 4.1 mmol/L (3.5-5.5)
[2021-05-22 06:41] LABS: BAND PERCENT MAN 5 % (0-8); BASOPHILS PERCENT MAN 0 % (0-2); EOSINOPHILS PERCENT MAN 0 % (0-6); LYMPHOCYTES ABSOLUTE MAN 0.24 K/mm3 (0.84-5.20); LYMPHOCYTES PERCENT MAN 3 % (21-46); MONOCYTES ABSOLUTE MAN 0.24 K/mm3 (0.16-1.47); MONOCYTES PERCENT MAN 3 % (4-13); NEUTROPHILS ABSOLUTE MAN 7.68 K/mm3 (1.96-9.15); SEG NEUTROPHILS PERCENT MAN 89 % (41-73); TOTAL CELLS COUNTED 100
--- NOTE | 2021-05-22 06:44 | NUR ---
SHIFT SUMMARY PATIENT ALERT AND ORIENTED. MEDICATED PER EMAR FOR NAUSEA AND FEVER. NO COMPLAINTS OF SHORTNESS OF BREATH. IV PATENT AND INFUSING. BED IN LOWEST POSITION WITH WHEELS LOCKED. CALL LIGHT WITHIN REACH. REPORT GIVEN TO ONCOMING DREA.
--- NOTE | 2021-05-22 16:10 | NUR ---
PT TRANSFERED OVER TO [facility]ERY [facility]ENTER. REPORT CALLED PRIOR WITH DWAIN SHEPARD. PT DOING AOX4 AND COOPERATIVE OF CARE. PT IS A ONE PERSON TRANSFER TO BEDSIDE COMMODE. POLANCO PATIENT AND RUNNING WELL. NO DISTRESS NOTED AT TIME OF TRANSFER. PT TREATED FOR NAUSEA TODAY PER EMAR AND INSULIN HELD EARLIER DUE TO LOWER CBGs OF 87 AND THEN 97.
--- NOTE | 2021-05-22 16:35 | NUR ---
PT TRANSFERRED TO [facility]. PT IS RESTING IN BED WATCHING TV. CALL LIGHT IN REACH.
--- NOTE | 2021-05-22 21:21 | NUR ---
PT UP AMBULATING IN STOVER WITH STANDBY ASSISTANCE AND WALKER.
--- NOTE | 2021-05-22 22:07 | NUR ---
PATIENT UP AMBULATING IN STOVER WITH STANDBY ASSIST AND WALKER.
--- NOTE | 2021-05-23 04:56 | NUR ---
DORETHA IS A PLEASNT GENTLEMAN, ALERT AND ORIENTED, AND COOPERATIVE WITH HIS PLAN OF CARE. PT WAS HERE WITH HIM AT THE BEGINNING OF THE SHIFT, EVALUATING HIM, AND HAVING HIM WALK IN THE HALLWAY WITH A WALKER. ACCORDING TO THEIR EVALUATION THEY THINK HE SHOULD BE ABLE TO GET AROUND AT HOME INDEPENDENTLY. WE HAD DORETHA WALK IN THE STOVER A COUPLE MORE TIMES THIS EVENING, USING A WALKER WITH STANDBY ASSIST, BEFORE HE SETTLED IN FOR THE EVENING. HE TOLERAED THIS WELL, AND SEEMS MOTIVATED TO BE ABLE TO GET BACK TO [place]. HE HAS SLEPT VERY WELL TONIGHT. POLANCO CONTINUES TO DRAIN DARK SAIDA URINE IN ADEQUATE AMOUNTS.
[2021-05-23 05:40] LABS: BASOPHILS ABSOLUTE AUTO 0.02 K/mm3 (0.00-0.23); BASOPHILS PERCENT AUTO 0 % (0-2); EOSINOPHILS ABSOLUTE AUTO 0.13 K/mm3 (0.00-0.68); EOSINOPHILS PERCENT AUTO 2 % (0-6); Hematocrit 25.9 % (37.0-53.0); Hemoglobin 8.7 g/dL (13.5-17.5); IMMATURE GRAN ABSOLUTE AUTO 0.06 K/mm3 (0.00-0.10); IMMATURE GRAN PERCENT AUTO 1 % (0-1); LYMPHOCYTES ABSOLUTE AUTO 0.86 K/mm3 (0.84-5.20); LYMPHOCYTES PERCENT AUTO 11 % (21-46); MONOCYTES ABSOLUTE AUTO 0.58 K/mm3 (0.16-1.47); MONOCYTES PERCENT AUTO 8 % (4-13); Mean Corpuscular HGB 31.1 pg (26.0-34.0); Mean Corpuscular HGB Conc 33.6 g/dL (31.5-36.5); Mean Corpuscular Volume 93 fL (80-100); NEUTROPHILS ABSOLUTE AUTO 6.11 K/mm3 (1.96-9.15); NEUTROPHILS PERCENT AUTO 79 % (41-73); Platelet Count 154 K/mm3 (150-400); RDW Coefficient Variation 13.5 % (11.7-14.2); RDW Standard Deviation 46.1 fL (35.1-46.3); White Blood Cell Count 7.76 K/mm3 (4.00-11.30)
[2021-05-23 06:10] LABS: Anion Gap 5 mmol/L (6-16); Blood Urea Nitrogen 21 mg/dL (8-24); CO2, Blood 22 mmol/L (21-32); Calcium, Blood 7.4 mg/dL (8.5-10.1); Chloride, Blood 105 mmol/L (98-108); Creatinine, Blood 1.05 mg/dL (0.60-1.20); Glomerular Filtration Rate >60 (60-); Glucose, Blood 86 mg/dL (70-99); Potassium, Blood 4.1 mmol/L (3.5-5.5); Sodium, Blood 132 mmol/L (136-145)
[2021-05-23] MEDS ORDERED: CEFD300 PO (14:35)
[2021-05-23] MEDS ORDERED: VISBIOME 112.51 EACH PO (14:43)
--- NOTE | 2021-05-23 15:42 | NUR ---
PATIENT DISCHARGED TO CARE OF . HE AND HIS VERBALIZE UNDERSTANDING OF DISCHARGE INSTRUCTIONS.
== END 2021-05-23 15:37 | disposition home or self-care (01) | DRG 698 ==
LOC: ER 13:10 → ERHOLD 15:17 → MEDS 17:30 → ORSCIP 05-22 16:11
PROVIDERS: Emergency Medicine; Family Medicine; Nurse Practitioner Acute Care; Student in an Organized Health Care Education/Training Program; ADMIT Family Medicine
DX: T83.518A Infection and inflammatory reaction due to other urinary catheter, initial encounter (principal); A41.53 Sepsis due to Serratia; G92 Toxic encephalopathy; R65.20 Severe sepsis without septic shock; N17.9 Acute kidney failure, unspecified; E87.1 Hypo-osmolality and hyponatremia; N39.0 Urinary tract infection, site not specified; Z20.822 Contact with and (suspected) exposure to COVID-19; D64.9 Anemia, unspecified; I10 Essential (primary) hypertension; E11.9 Type 2 diabetes mellitus without complications; Z85.46 Personal history of malignant neoplasm of prostate; Z88.8 Allergy status to other drugs, medicaments and biological substances; E78.5 Hyperlipidemia, unspecified; Z90.49 Acquired absence of other specified parts of digestive tract; Z98.890 Other specified postprocedural states; I25.2 Old myocardial infarction; Z98.49 Cataract extraction status, unspecified eye
CPT/HCPCS: 36415; 51701; 71045; 80048; 80053; 82330; 82947; 83605; 83735; 85025; 87040; 87077; 87186; 96365-59; 97110; 97161; 97165; 97530; 99285-25; A9270; J0696; J1644; J1815; J2405; J7030; U0004

== ENCOUNTER → 2021-06-02 | Outpatient (CLI) | payer MEDICARE ==
[~2021-06-02] MED LIST changes: +CEFD300 PO; +LEVEMIR FL100 UNIT/2 SC; +SULTRIDS PO; +VISBIOME 112.51 EACH PO
[2021-06-02 20:07] LABS: Anion Gap 6 mmol/L (6-16); Blood Urea Nitrogen 11 mg/dL (8-24); Bun/Creatinine Ratio 11.6 (12.0-20.0); CO2, Blood 26 mmol/L (21-32); Calcium, Blood 8.6 mg/dL (8.5-10.1); Chloride, Blood 101 mmol/L (98-108); Creatinine, Blood 0.95 mg/dL (0.60-1.20); Glomerular Filtration Rate >60 (60-); Glucose, Blood 152 mg/dL (70-99); Potassium, Blood 4.5 mmol/L (3.5-5.5); Sodium, Blood 133 mmol/L (136-145)
== END | disposition home or self-care (01) ==
LOC: LAB SHORT 19:18
PROVIDERS: Family Medicine
DX: Z51.81 Encounter for therapeutic drug level monitoring (principal); Z79.899 Other long term (current) drug therapy
CPT/HCPCS: 80048; 82306

== ENCOUNTER 2021-10-10 01:04 | Inpatient (IN) | payer MEDICARE ==
[~2021-10-10] VITALS: Ht 172.7 cm; Wt 73.5 kg
[2021-10-10 01:37] LABS: BASOPHILS ABSOLUTE AUTO 0.02 K/mm3 (0.00-0.23); BASOPHILS PERCENT AUTO 0 % (0-2); EOSINOPHILS PERCENT AUTO 0 % (0-6); Hematocrit 27.6 % (37.0-53.0); Hemoglobin 9.1 g/dL (13.5-17.5); IMMATURE GRAN ABSOLUTE AUTO 0.07 K/mm3 (0.00-0.10); IMMATURE GRAN PERCENT AUTO 1 % (0-1); LYMPHOCYTES ABSOLUTE AUTO 0.73 K/mm3 (0.84-5.20); LYMPHOCYTES PERCENT AUTO 5 % (21-46); MONOCYTES ABSOLUTE AUTO 0.81 K/mm3 (0.16-1.47); MONOCYTES PERCENT AUTO 6 % (4-13); Mean Corpuscular HGB 29.8 pg (26.0-34.0); Mean Corpuscular Volume 91 fL (80-100); NEUTROPHILS PERCENT AUTO 88 % (41-73); Platelet Count 253 K/mm3 (150-400); RDW Coefficient Variation 13.8 % (11.7-14.2); RDW Standard Deviation 45.8 fL (35.1-46.3); Red Blood Cell Count 3.05 M/mm3 (4.30-5.90); White Blood Cell Count 13.83 K/mm3 (4.00-11.30)
[2021-10-10 01:41] LABS: Source, Urine Voided
[2021-10-10 01:44] LABS: Bilirubin, Urine Neg (Neg); Blood, Urine 5+ (Neg); Glucose Qualitative, Urine Neg (Neg); Ketones, Urine Neg (Neg); Leukocyte Esterase, Urine 3+ (Neg); Nitrite, Urine Neg (Neg); Protein, Urine 3+ (Neg); Urobilinogen, Urine NORM (Normal)
[2021-10-10 01:46] LABS: Appearance, Urine Cloudy (Clear); Color, Urine Yellow (P-Yellow)
[2021-10-10 01:50] LABS: Bacteria Mod /hpf; Squamous Epithelial Cells Rare /hpf (Few); White Blood Cells, Urine TNTC /hpf (0-5)
[2021-10-10 01:55] LABS: Albumin, Blood 2.9 g/dL (3.4-5.0); Albumin/Globulin Ratio 0.8 (0.8-1.8); Bilirubin, Total 0.6 mg/dL (0.1-1.0); Bun/Creatinine Ratio 22.5 (12.0-20.0); Calcium, Blood 8.6 mg/dL (8.5-10.1); Creatinine, Blood 1.29 mg/dL (0.60-1.20); Globulin, Blood 3.8 g/dL (2.2-4.0); Potassium, Blood 4.4 mmol/L (3.5-5.5); Total Protein, Blood 6.7 g/dL (6.4-8.2); Troponin I 0.031 ng/mL (0.000-0.040)
[2021-10-10 02:13] LABS: Influenza A, PCR NEGATIVE (NEGATIVE); Influenza B, PCR NEGATIVE (NEGATIVE); Resp Syncytial Virus, PCR NEGATIVE (NEGATIVE); SARS-Cov-2 (COVID-19) PCR, MMC NEGATIVE (NEGATIVE)
--- NOTE | 2021-10-10 04:37 | NUR ---
PT ARRIVED TO THE FLOOR AT APPROX 0315. PT IS A/O AND COOPERATIVE WITH CARE. VITAL SIGNS TAKEN AT TIME OF ARRIVAL, ROOM AIR, TEMP 100.3 AND TACHYCARDIC. VOIDED 100ML. TELE PLACED ON PATIENT. ONE PERSON STAND BY ASSIST. PLAN TO CONTINUE FLUIDS. WILL CONTINUE TO MONITOR AND REPORT TO ONCOMING RN.
--- NOTE | 2021-10-10 16:41 | NUR ---
Attempted to place 16 F day catheter using sterile technique. Resistance met. Attempted to place 14 coude tip catheter using sterile technique. Unsuccessful. Primary RN to bedside for assistance. Patient tolerated procedure well, minimal complaints of pain.
--- NOTE | 2021-10-10 18:28 | NUR ---
PATIENT CURRENTLY SITTING UP IN BED LOOKING AT TV. NO SIGNS OR SYMPTOMS ACUTE DISTRESS NOTED. CALL LIGHT AND WATER IN EASY REACH. ABLE TO MAKE NEEDS AND WANTS KNOWN. BED ALARM ON AND FUNCTIONING PROPERLY. PATIENT WAS BLADDER SCANNED EARLY IN THE DAY TODAY WITH 350ML, DID STRAIGHT CATH WITH 500ML CLOUDY SAIDA URINE WITH SEDIMENT NOTED. AT ABOUT 1530 BLADDER SCANNED WITH 403 IN BLADDER. STUDENT NURSE WITH INSTUCTOR ATTEMPTED TO PLACE POLANCO CATH AFTER ORDER WAS GIVEN BY DR PATEL. THEY ATTEMPTED X 2 WITH NO SUCCESS WITH 16FR OR WITH 14 COUDE. THIS NURSE ATTEMPTED WELL WITH COUDE THEN STRAIGT CATH WITH NO SUCCESS. RESISTANCE WAS MET EACH TIME. CHARGE NURSE ATTEMPTED WITH 18FR WITH NO SUCCESS. NOTIFIED DR PATEL, HE ORDERED FLOMAX FOR PATIENT. THIS NURSE LET DR PATEL KNOW WE WOULD GIVE PATIENT A BRAKE FOR WHILE AND TRY CATH LATER. PATIENT HAS SINCE VOIDED ON HIS OWN 250ML, IN SMALL INCIMENTS OF 100 ML, THEN 100ML THEN 50 ML. IVF COMPLETE. WILL CONTINUE TO MONITOR.
[2021-10-11 04:16] LABS: BASOPHILS ABSOLUTE AUTO 0.03 K/mm3 (0.00-0.23); BASOPHILS PERCENT AUTO 0 % (0-2); EOSINOPHILS ABSOLUTE AUTO 0.02 K/mm3 (0.00-0.68); EOSINOPHILS PERCENT AUTO 0 % (0-6); Hematocrit 23.7 % (37.0-53.0); Hemoglobin 7.8 g/dL (13.5-17.5); IMMATURE GRAN PERCENT AUTO 1 % (0-1); LYMPHOCYTES ABSOLUTE AUTO 1.08 K/mm3 (0.84-5.20); LYMPHOCYTES PERCENT AUTO 9 % (21-46); MONOCYTES ABSOLUTE AUTO 0.68 K/mm3 (0.16-1.47); MONOCYTES PERCENT AUTO 6 % (4-13); Mean Corpuscular HGB 30.5 pg (26.0-34.0); Mean Corpuscular HGB Conc 32.9 g/dL (31.5-36.5); Mean Corpuscular Volume 93 fL (80-100); Mean Platelet Volume 8.8 fL (9.1-12.4); NEUTROPHILS ABSOLUTE AUTO 10.23 K/mm3 (1.96-9.15); NEUTROPHILS PERCENT AUTO 84 % (41-73); Platelet Count 200 K/mm3 (150-400); RDW Coefficient Variation 14.2 % (11.7-14.2); RDW Standard Deviation 47.9 fL (35.1-46.3); Red Blood Cell Count 2.56 M/mm3 (4.30-5.90); White Blood Cell Count 12.14 K/mm3 (4.00-11.30)
[2021-10-11 04:40] LABS: Bun/Creatinine Ratio 19.6 (12.0-20.0); Calcium, Blood 7.9 mg/dL (8.5-10.1); Creatinine, Blood 1.38 mg/dL (0.60-1.20); Potassium, Blood 4.1 mmol/L (3.5-5.5)
--- NOTE | 2021-10-11 04:54 | NUR ---
SHIFT SUMMARY: PT VOIDING SPONTANEOUSLY THROUGHOUT SHIFT WITHOUT NEED FOR A CATHETER INSERTION. PT VOIDING BETWEEB 50-100 CC EACH TIME. URINE YELLOW AND CLOUDY. BOTH BLADDER SCANS SHOWED <350CC OF URINE. ORDER RECIEVED TO INSERT CATHETER IF AMOUNT RETAINED IS GREATER THAN 350CC. HOSPITALIST NOTIFIED OF POSITIVE BLOOD CULTURES-ORDER TO CONTINUE SAME ABX.
[2021-10-11 18:42] LABS: BASOPHILS ABSOLUTE AUTO 0.03 K/mm3 (0.00-0.23); BASOPHILS PERCENT AUTO 0 % (0-2); EOSINOPHILS ABSOLUTE AUTO 0.02 K/mm3 (0.00-0.68); EOSINOPHILS PERCENT AUTO 0 % (0-6); Hematocrit 29.6 % (37.0-53.0); Hemoglobin 9.3 g/dL (13.5-17.5); IMMATURE GRAN ABSOLUTE AUTO 0.11 K/mm3 (0.00-0.10); IMMATURE GRAN PERCENT AUTO 1 % (0-1); LYMPHOCYTES ABSOLUTE AUTO 0.99 K/mm3 (0.84-5.20); LYMPHOCYTES PERCENT AUTO 6 % (21-46); MONOCYTES ABSOLUTE AUTO 0.47 K/mm3 (0.16-1.47); MONOCYTES PERCENT AUTO 3 % (4-13); Mean Corpuscular HGB 29.6 pg (26.0-34.0); Mean Corpuscular HGB Conc 31.4 g/dL (31.5-36.5); Mean Corpuscular Volume 94 fL (80-100); Mean Platelet Volume 9.3 fL (9.1-12.4); NEUTROPHILS ABSOLUTE AUTO 15.39 K/mm3 (1.96-9.15); NEUTROPHILS PERCENT AUTO 91 % (41-73); Platelet Count 242 K/mm3 (150-400); RDW Coefficient Variation 13.8 % (11.7-14.2); RDW Standard Deviation 47.8 fL (35.1-46.3); Red Blood Cell Count 3.14 M/mm3 (4.30-5.90); White Blood Cell Count 17.01 K/mm3 (4.00-11.30)
[2021-10-11 19:01] LABS: PCO2 Arterial 20.1 mmHg (35-45); PO2 Arterial 96.1 mmHg (80-100); pH Blood Arterial 7.47 (7.35-7.45)
--- NOTE | 2021-10-11 19:06 | NUR ---
PATIENT CURRENTLY IN BED TRYING TO URINATE. PATIENT IS UNABLE. PATIENT HAD BEEN ABLE TO URINATE SMALL AMOUNTS THROUGHOUT THE DAY UNTIL HE COMPLAINED HE COULD NOT URINATE AT ABOUT 1600 TODAY. BLADDER SCAN DONE WHICH RESULTED IN 503 IN BLADDER AT THAT TIME. MULTIPLE NURSES ATTEMPTED TO PLACE POLANCO CATH WITH NO SUCCESS. RAPID RESPONSE CALLED AFTER PATIENT WAS SHAKING WITHOUT BEING ABLE TO STOP, HEART RATE IN THE 150'S AND RESPIRATIONS 24-28. THE NURSES ATTEMPTED TO START A 3-WAY IRRIGATING CATH WITH NO SUCCESS. NO DRAINAGE FROM CATH ONCE BALLOON INFLATED. DR PATEL ARRIVED AND DID DIGITAL MANIPULATION OF PROSTATE TO TRY TO GET CATH IN WITH NO SUCCESS. TYLENOL WAS GIVEN FOR FEVER. DR PATEL IS HERE ATTEMPTING TO GET PATIENT TRANSFERED TO ANOTHER FACILITY WITH UROLOGY. TELE REPLACED, LACTIC ACID IS 8.[address] PATEL. GIVING REPORT TO DREA ROMAN
[2021-10-11 19:07] LABS: Bun/Creatinine Ratio 21.4 (12.0-20.0); Calcium, Blood 8.2 mg/dL (8.5-10.1); Creatinine, Blood 1.59 mg/dL (0.60-1.20); Potassium, Blood 4.6 mmol/L (3.5-5.5)
--- NOTE | 2021-10-11 19:54 | NUR ---
REPORT REC FROM JUANJOSE Herring RN. PT ALERT, SHAKY, SOMEWHAT FORGETFUL. HR SINUS W/PAC AND PVC 150-160 PER TELE MONITOR. PT DENIES CP/PRESSURE. RESP RATE 24-26, 3LO2 NC IN PLACE. LUNGS DIM, NO WHEEZING/CRACKLES NOTED. PT CONT TO REP FEELING URGE TO VOID, BUT IS STILL UNABLE. PER DR PATEL, PLAN TO TX TO [facility] ER FOR POSS SUPER PUBIC CATH PLACEMENT. DR PATEL AND DR NIXON UPDATED ON PT VITALS AND ELEVATED LACTIC ACID. TRANSPORT CALLED TO [facility] APPX 1940, PER DISPATCH, TRANSPORT SHOULD ARRIVE IN APPX 30-45 MIN FROM CALL. TRANSFER PACKET PRINTED, PT SIGNED CONSENT. AWATING TRANSPORT TEAM. NURSING BASIC ACOUSTIC ANALYST AWARE.
--- NOTE | 2021-10-11 20:35 | NUR ---
pt just left /[facility] transport team. will update and call report to radha yanez
--- NOTE | 2021-10-11 20:46 | NUR ---
reprt called to radha martinez rn.
--- NOTE | 2021-10-11 20:50 | NUR ---
pt updated on pt transfer.
== END 2021-10-11 20:35 | disposition short-term general hospital (02) | DRG 871 ==
LOC: ER 01:04 → SURS 02:25 → ER 02:25 → ERHOLD 02:25 → SURS 03:27 → ERHOLD 10-11 20:35
PROVIDERS: Emergency Medicine; Internal Medicine; ADMIT Internal Medicine
DX: A41.53 Sepsis due to Serratia (principal); R65.21 Severe sepsis with septic shock; N39.0 Urinary tract infection, site not specified; N17.9 Acute kidney failure, unspecified; E87.1 Hypo-osmolality and hyponatremia; E87.2 Acidosis; N13.8 Other obstructive and reflux uropathy; R71.0 Precipitous drop in hematocrit; Z20.822 Contact with and (suspected) exposure to COVID-19; I48.91 Unspecified atrial fibrillation; D69.6 Thrombocytopenia, unspecified; E78.5 Hyperlipidemia, unspecified; R79.89 Other specified abnormal findings of blood chemistry; I12.9 Hypertensive chronic kidney disease with stage 1 through stage 4 chronic kidney disease, or unspecified chronic kidney disease; N40.1 Benign prostatic hyperplasia with lower urinary tract symptoms; R33.8 Other retention of urine; E11.22 Type 2 diabetes mellitus with diabetic chronic kidney disease; N18.30 Chronic kidney disease, stage 3 unspecified; D63.1 Anemia in chronic kidney disease; Z88.8 Allergy status to other drugs, medicaments and biological substances; Z79.82 Long term (current) use of aspirin; Z79.899 Other long term (current) drug therapy; Z79.4 Long term (current) use of insulin; Z90.49 Acquired absence of other specified parts of digestive tract; Z98.890 Other specified postprocedural states; Z85.46 Personal history of malignant neoplasm of prostate; Z92.3 Personal history of irradiation; Z87.891 Personal history of nicotine dependence; W18.30XA Fall on same level, unspecified, initial encounter
CPT/HCPCS: 0241U; 36415; 36430; 36600; 70450; 71045; 72125; 76770; 80048; 80053; 80069; 81001; 82272; 82607; 82728; 82746; 82803; 82947; 83540; 83550; 83605; 83880; 84145; 84484; 85014; 85018; 85025; 86850; 86900; 86901; 86923; 87040; 87077; 87086; 87147; 87186; 93005; 93010; 93306; 94760; 96374; 97161; 97530; 99285-25; A9270; J0696; J1650; J1815; J3010; J7030; J7120; P9016

== ENCOUNTER 2021-10-12 03:23 | Inpatient (IN) | payer MEDICARE ==
[~2021-10-12] VITALS: Ht 172.7 cm; Wt 73.5 kg
[2021-10-12 06:17] LABS: Bun/Creatinine Ratio 26.8 (12.0-20.0); Calcium, Blood 8.1 mg/dL (8.5-10.1); Creatinine, Blood 1.53 mg/dL (0.60-1.20); Potassium, Blood 4.6 mmol/L (3.5-5.5)
--- NOTE | 2021-10-12 06:36 | NUR ---
PT VSS SINCE ARRIVING BACK TO FLOOR. HR SINUS TACH 101 THIS AM PER TELE MONITOR. SATS >90% ON RA. PT DENIES ABD OR URINARY PAIN. POLANCO PATANT DRNG CLOUDY LIGHT PINK URINE, FEW SMALL CLOTS NOTED. PT CONT TO HAVE SMALL AMT BLOODY DRNG FROM URETHRA. IVF AND ABX CONT PER ORDERS. PT USING CALL LIGHT FOR ASSISTANCE.
--- NOTE | 2021-10-12 07:14 | NUR ---
PT SHANEL UPDATED ON PT'S RETURN.
--- NOTE | 2021-10-12 17:32 | NUR ---
PATIENT HAD A VERY GOOD DAY TODAY. NO COMPLAINTS OF PAIN VOICED. POLANCO CATH IS DRAINING YELLOW URINE WITH SMALL AMOUNTS OF SEDIMENT NOTED. NO SIGNS OR SYMPTOMS ACUTE DISTRESS NOTED. CURRENTLY RECIEVING A BOLUS OF NS. PATIENT TREATED FOR FEVER WITH TYLENOL TODAY. CALL LIGHT AND WATER IN EASY REACH. APPETITE IS BETTER. PATIENT IS AAOX4 ABLE TO MAKE NEEDS AND WANTS KNOWN. WILL CONTINUE TO MONITOR.
--- NOTE | 2021-10-13 04:36 | NUR ---
SHIFT SUMMARY: NO ACUTE CHANGES THIS SHIFT. POLANCO CATHETER PATENT AND DRAINING YELLOW URINE. SMALL AMOUNT OF BLOOD PER URETHRA. PT DENIES URINARY SYMPTOMS. PT GIVEN TYLENOL ONCE FOR FEVER OF 100.8. ASYMPTOMATIC. PLAN TO CONTINUE DAILY ABX.
[2021-10-13 04:48] LABS: BASOPHILS ABSOLUTE AUTO 0.02 K/mm3 (0.00-0.23); BASOPHILS PERCENT AUTO 0 % (0-2); EOSINOPHILS ABSOLUTE AUTO 0.05 K/mm3 (0.00-0.68); EOSINOPHILS PERCENT AUTO 1 % (0-6); Hematocrit 23.4 % (37.0-53.0); Hemoglobin 7.3 g/dL (13.5-17.5); IMMATURE GRAN ABSOLUTE AUTO 0.05 K/mm3 (0.00-0.10); IMMATURE GRAN PERCENT AUTO 1 % (0-1); LYMPHOCYTES PERCENT AUTO 13 % (21-46); MONOCYTES ABSOLUTE AUTO 0.41 K/mm3 (0.16-1.47); MONOCYTES PERCENT AUTO 5 % (4-13); Mean Corpuscular HGB 29.3 pg (26.0-34.0); Mean Corpuscular HGB Conc 31.2 g/dL (31.5-36.5); Mean Corpuscular Volume 94 fL (80-100); Mean Platelet Volume 10.1 fL (9.1-12.4); NEUTROPHILS ABSOLUTE AUTO 6.14 K/mm3 (1.96-9.15); NEUTROPHILS PERCENT AUTO 80 % (41-73); NRBC ABSOLUTE 0.02 K/mm3 (0.00-0.02); NRBC Auto 0.3 /100 WBC (0.0-0.2); Platelet Count 152 K/mm3 (150-400); RDW Coefficient Variation 14.1 % (11.7-14.2); RDW Standard Deviation 48.4 fL (35.1-46.3); Red Blood Cell Count 2.49 M/mm3 (4.30-5.90); White Blood Cell Count 7.67 K/mm3 (4.00-11.30)
[2021-10-13 05:42] LABS: Albumin, Blood 2.2 g/dL (3.4-5.0); Albumin/Globulin Ratio 0.8 (0.8-1.8); Bilirubin, Total 0.3 mg/dL (0.1-1.0); Bun/Creatinine Ratio 31.9 (12.0-20.0); Calcium, Blood 7.4 mg/dL (8.5-10.1); Creatinine, Blood 1.35 mg/dL (0.60-1.20); Globulin, Blood 2.9 g/dL (2.2-4.0); Total Protein, Blood 5.1 g/dL (6.4-8.2)
--- NOTE | 2021-10-13 17:34 | NUR ---
PATIENT CURRENTLY SITTING UP IN BED EATING HIS MEAL. PATIENTS APPETITE IS MUCH BETTER TODAY. POLANCO CATH IS PATENT. NO SIGNS OR SYMPTOMS ACUTE DISTRESS NOTED. CALL LIGHT AND WATER IN EASY REACH. ABLE TO MAKE NEEDS AND WANTS KNOWN. TELE DC'D, IVF DC'D WELL. AAOX4. NO COMPLAINTS OF PAIN OR DISCOMFORT VOICED TODAY. SAT UP IN CHAIR TODAY. WILL MONITOR.
--- NOTE | 2021-10-14 04:07 | NUR ---
SHIFT SUMMARY RAY SLEPT MOST OF THE NIGHT WITHOUT C/O PAIN. IV IN RFA FLUSHES WELL. LUNGS CLEAR. A&O X4. AC/HS BLOOD SUGARS, CBG [address] DRAINING CLEAR YELLOW URINE. SCANT BLOODY DRAINAGE NOTED FROM MEATUS. ADA DIET. SBA WITH WALKER. VSS. WILL CONTINUE TO MONITOR UNTIL GIVING REPORT TO DAY SHIFT NURSE.
[2021-10-14 08:57] LABS: BASOPHILS ABSOLUTE AUTO 0.02 K/mm3 (0.00-0.23); BASOPHILS PERCENT AUTO 0 % (0-2); EOSINOPHILS ABSOLUTE AUTO 0.14 K/mm3 (0.00-0.68); EOSINOPHILS PERCENT AUTO 2 % (0-6); Hematocrit 25.1 % (37.0-53.0); Hemoglobin 8.2 g/dL (13.5-17.5); IMMATURE GRAN ABSOLUTE AUTO 0.09 K/mm3 (0.00-0.10); IMMATURE GRAN PERCENT AUTO 1 % (0-1); LYMPHOCYTES ABSOLUTE AUTO 0.71 K/mm3 (0.84-5.20); LYMPHOCYTES PERCENT AUTO 8 % (21-46); MONOCYTES ABSOLUTE AUTO 0.37 K/mm3 (0.16-1.47); MONOCYTES PERCENT AUTO 4 % (4-13); Mean Corpuscular HGB 30.6 pg (26.0-34.0); Mean Corpuscular HGB Conc 32.7 g/dL (31.5-36.5); Mean Corpuscular Volume 94 fL (80-100); Mean Platelet Volume 10.2 fL (9.1-12.4); NEUTROPHILS ABSOLUTE AUTO 7.26 K/mm3 (1.96-9.15); NEUTROPHILS PERCENT AUTO 85 % (41-73); Platelet Count 176 K/mm3 (150-400); RDW Coefficient Variation 14.3 % (11.7-14.2); RDW Standard Deviation 48.9 fL (35.1-46.3); Red Blood Cell Count 2.68 M/mm3 (4.30-5.90); White Blood Cell Count 8.59 K/mm3 (4.00-11.30)
[2021-10-14 09:53] LABS: Albumin, Blood 2.3 g/dL (3.4-5.0); Anion Gap 9 mmol/L (6-16); Blood Urea Nitrogen 36 mg/dL (8-24); Bun/Creatinine Ratio 28.8 (12.0-20.0); CO2, Blood 21 mmol/L (21-32); Calcium, Blood 7.9 mg/dL (8.5-10.1); Chloride, Blood 105 mmol/L (98-108); Creatinine, Blood 1.25 mg/dL (0.60-1.20); Ferritin, Serum 583 ng/mL (26-388); Glomerular Filtration Rate 55 (60-); Glucose, Blood 129 mg/dL (70-99); Iron Serum 30 ug/dL (65-175); Percent Saturation 16.5 % (20.0-50.0); Phosphorus, Blood 3.8 mg/dL (2.5-4.9); Potassium, Blood 4.1 mmol/L (3.5-5.5); Sodium, Blood 135 mmol/L (136-145); Total Iron Binding Capacity 182 ug/dL (250-450)
--- NOTE | 2021-10-15 01:57 | NUR ---
LBM 10/07, REFUSED SUPPOSITORY, CURRENTLY RECEIVES COLACE, ABD SOFT, NONTENDER, BS ACTIVE IN ALL 4 QUADS.
[2021-10-15 05:17] LABS: BASOPHILS ABSOLUTE AUTO 0.01 K/mm3 (0.00-0.23); BASOPHILS PERCENT AUTO 0 % (0-2); EOSINOPHILS ABSOLUTE AUTO 0.19 K/mm3 (0.00-0.68); EOSINOPHILS PERCENT AUTO 3 % (0-6); Hematocrit 22.3 % (37.0-53.0); IMMATURE GRAN ABSOLUTE AUTO 0.04 K/mm3 (0.00-0.10); IMMATURE GRAN PERCENT AUTO 1 % (0-1); LYMPHOCYTES ABSOLUTE AUTO 0.98 K/mm3 (0.84-5.20); LYMPHOCYTES PERCENT AUTO 16 % (21-46); MONOCYTES ABSOLUTE AUTO 0.41 K/mm3 (0.16-1.47); MONOCYTES PERCENT AUTO 7 % (4-13); Mean Corpuscular HGB 29.4 pg (26.0-34.0); Mean Corpuscular HGB Conc 31.4 g/dL (31.5-36.5); Mean Corpuscular Volume 94 fL (80-100); Mean Platelet Volume 10.4 fL (9.1-12.4); NEUTROPHILS ABSOLUTE AUTO 4.53 K/mm3 (1.96-9.15); NEUTROPHILS PERCENT AUTO 74 % (41-73); Platelet Count 141 K/mm3 (150-400); RDW Coefficient Variation 14.6 % (11.7-14.2); RDW Standard Deviation 49.4 fL (35.1-46.3); Red Blood Cell Count 2.38 M/mm3 (4.30-5.90); White Blood Cell Count 6.16 K/mm3 (4.00-11.30)
--- NOTE | 2021-10-15 05:30 | NUR ---
MEDICATED WITH PO AND IV DILAUDID FOR PAIN MANAGEMENT DUE TO C/O RIGHT RIGHT KNEE AND RLE PHANTOM PAIN, EFFECTIVE RELIEF. SLEPT WELL THROUGH NIGHT. CPAP IN PLACE, TOLERATED WELL. S/R ON TELE. SAFETY MAINTAINED, CALL RICHARDS IN REACH.
--- NOTE | 2021-10-15 05:35 | NUR ---
SLEPT WELL THROUGH NIGHT. DENIES PAIN OR DISCOMFORT. POLANCO CATHETER PATENT, DRAINING YELLOW URINE WITH SEDIMET, SMALL AMOUNT OF BLOOD AROUND TIP OF PENIS. SAFETY MAINTAINED, CALL RICHARDS IN REACH.
--- NOTE | 2021-10-15 06:09 | NUR ---
HGB 7.0, NOTIFIED , RECEIVED ORDERS TO DISCONTINUE LOVENOX.
[2021-10-15 06:25] LABS: Albumin, Blood 2.1 g/dL (3.4-5.0); Anion Gap 8 mmol/L (6-16); Blood Urea Nitrogen 32 mg/dL (8-24); Bun/Creatinine Ratio 28.6 (12.0-20.0); CO2, Blood 21 mmol/L (21-32); Calcium, Blood 8.2 mg/dL (8.5-10.1); Chloride, Blood 106 mmol/L (98-108); Creatinine, Blood 1.12 mg/dL (0.60-1.20); Glomerular Filtration Rate >60 (60-); Glucose, Blood 114 mg/dL (70-99); Phosphorus, Blood 3.5 mg/dL (2.5-4.9); Potassium, Blood 4.2 mmol/L (3.5-5.5); Sodium, Blood 135 mmol/L (136-145)
[2021-10-15 14:55] LABS: Hematocrit 29.1 % (37.0-53.0); Hemoglobin 9.2 g/dL (13.5-17.5)
--- NOTE | 2021-10-15 15:35 | NUR ---
SHIFT SUMMARY PT A&OX4, VSS/RA, CBGS CNI. POLANCO PATENT & DRAINING YELLOW URINE, STAT LOCK ON, OFF FLOOR. AMB SBA/GB TO BRP/CHAIR/BED, UP TO CHAIR, WORKED WITH PHYSICAL THERAPY. BMS X2 TODAY; GUAIC STOOL SAMPLE SENT. TITO PO. DENIES PAIN. RECEIVED 1 UNIT BLOOD. WILL REPORT TO ONCOMING NOC RN.
[2021-10-15 20:12] LABS: Hematocrit 24.8 % (37.0-53.0); Hemoglobin 8.1 g/dL (13.5-17.5)
[2021-10-16 04:47] LABS: BASOPHILS ABSOLUTE AUTO 0.02 K/mm3 (0.00-0.23); BASOPHILS PERCENT AUTO 0 % (0-2); EOSINOPHILS ABSOLUTE AUTO 0.28 K/mm3 (0.00-0.68); EOSINOPHILS PERCENT AUTO 5 % (0-6); Hematocrit 26.6 % (37.0-53.0); Hemoglobin 8.6 g/dL (13.5-17.5); IMMATURE GRAN ABSOLUTE AUTO 0.07 K/mm3 (0.00-0.10); IMMATURE GRAN PERCENT AUTO 1 % (0-1); LYMPHOCYTES ABSOLUTE AUTO 1.18 K/mm3 (0.84-5.20); LYMPHOCYTES PERCENT AUTO 19 % (21-46); MONOCYTES PERCENT AUTO 7 % (4-13); Mean Corpuscular HGB Conc 32.3 g/dL (31.5-36.5); Mean Corpuscular Volume 93 fL (80-100); Mean Platelet Volume 10.9 fL (9.1-12.4); NEUTROPHILS ABSOLUTE AUTO 4.14 K/mm3 (1.96-9.15); NEUTROPHILS PERCENT AUTO 68 % (41-73); Platelet Count 132 K/mm3 (150-400); RDW Coefficient Variation 15.1 % (11.7-14.2); RDW Standard Deviation 50.7 fL (35.1-46.3); Red Blood Cell Count 2.87 M/mm3 (4.30-5.90); White Blood Cell Count 6.09 K/mm3 (4.00-11.30)
[2021-10-16 05:04] LABS: Albumin, Blood 2.1 g/dL (3.4-5.0); Anion Gap 7 mmol/L (6-16); Blood Urea Nitrogen 24 mg/dL (8-24); Bun/Creatinine Ratio 23.1 (12.0-20.0); CO2, Blood 24 mmol/L (21-32); Calcium, Blood 7.9 mg/dL (8.5-10.1); Chloride, Blood 106 mmol/L (98-108); Creatinine, Blood 1.04 mg/dL (0.60-1.20); Glomerular Filtration Rate >60 (60-); Glucose, Blood 113 mg/dL (70-99); Phosphorus, Blood 3.1 mg/dL (2.5-4.9); Potassium, Blood 4.2 mmol/L (3.5-5.5); Sodium, Blood 137 mmol/L (136-145)
--- NOTE | 2021-10-16 05:43 | NUR ---
SLEPT WELL THROUGH NIGHT, DENIES PAIN OR DISCOMFORT. SMALL AMOUNT OF BLOOD NOTED ON TIP OF PENIS. POLANCO CAYHETER PATENT DRAINING YELLOW URINE WITH SEDIMET NOTED. SAFETY MAINTAINED, CALL RICHARDS IN REACH.
[2021-10-16 12:26] LABS: Stool Occult Blood Guaiac 1 Neg (Neg)
[2021-10-16] MEDS ORDERED: METO25 PO (12:42)
[2021-10-16] MEDS ORDERED: BASAGLAR K100 UNIT/1 SC (12:42)
[2021-10-16] MEDS ORDERED: LEVO750 PO (12:44)
[2021-10-16] MEDS ORDERED: VISBIOME 112.51 EACH PO (12:44)
--- NOTE | 2021-10-16 15:02 | NUR ---
DISCHARGE PT DISCHARGED HOME FROM UNIT AT APROX 1345. PT GIVEN WRITTEN AND VERBAL DISCHARGE INSTUCTIONS INCLUDING EXTENSIVE EDUCATION ON HOME CATH CARE, PT VERBALIZED UNDERSTANDING. 900ML CLEAR YELLOW URINE DRAINED PRIOR TO DC. IV REMOVED. WC TO CAR. NEW RX'S FAXED TO [facility].
== END 2021-10-16 13:53 | disposition home or self-care (01) | DRG 871 ==
LOC: SURS 03:23
PROVIDERS: Family Medicine; Internal Medicine; ADMIT Internal Medicine
PROC: 30233N1 Transfusion of Nonautologous Red Blood Cells into Peripheral Vein, Percutaneous Approach (ICD-10-PCS; principal; 2021-10-15)
DX: A41.53 Sepsis due to Serratia (principal); R65.21 Severe sepsis with septic shock; N39.0 Urinary tract infection, site not specified; N17.9 Acute kidney failure, unspecified; E87.1 Hypo-osmolality and hyponatremia; E87.2 Acidosis; N13.8 Other obstructive and reflux uropathy; R71.0 Precipitous drop in hematocrit; Z20.822 Contact with and (suspected) exposure to COVID-19; I48.91 Unspecified atrial fibrillation; E78.5 Hyperlipidemia, unspecified; R79.89 Other specified abnormal findings of blood chemistry; I12.9 Hypertensive chronic kidney disease with stage 1 through stage 4 chronic kidney disease, or unspecified chronic kidney disease; N40.1 Benign prostatic hyperplasia with lower urinary tract symptoms; R33.8 Other retention of urine; E11.22 Type 2 diabetes mellitus with diabetic chronic kidney disease; N18.30 Chronic kidney disease, stage 3 unspecified; D63.1 Anemia in chronic kidney disease; Z88.8 Allergy status to other drugs, medicaments and biological substances; Z79.82 Long term (current) use of aspirin; Z79.899 Other long term (current) drug therapy; Z79.4 Long term (current) use of insulin; Z90.49 Acquired absence of other specified parts of digestive tract; Z98.890 Other specified postprocedural states; Z85.46 Personal history of malignant neoplasm of prostate; Z92.3 Personal history of irradiation; Z87.891 Personal history of nicotine dependence
CPT/HCPCS: 36415; 36430; 76770; 80048; 80053; 80069; 82272; 82607; 82728; 82746; 82947; 83540; 83550; 83605; 85014; 85018; 85025; 86850; 86900; 86901; 86923; 87040; 93306; 97161; 97530; A9270; J0696; J1650; J1815; J7030; J7120; P9016

== ENCOUNTER 2023-05-24 10:12 | Inpatient (IN) | payer MEDICARE ==
[~2023-05-24] VITALS: Ht 175.3 cm; Wt 78.2 kg
[2023-05-24] VITALS (24 sets, daily range): BP systolic 94–142; BP diastolic 46–95
[~2023-05-24 10:12] MED LIST changes: +LEVO750 PO; +METO25 PO
[2023-05-24 10:49] LABS: BASOPHILS ABSOLUTE AUTO 0.03 K/mm3 (0.00-0.23); BASOPHILS PERCENT AUTO 0 % (0-2); EOSINOPHILS PERCENT AUTO 0 % (0-6); Hematocrit 28.6 % (37.0-53.0); Hemoglobin 9.5 g/dL (13.5-17.5); IMMATURE GRAN ABSOLUTE AUTO 0.08 K/mm3 (0.00-0.10); IMMATURE GRAN PERCENT AUTO 1 % (0-1); LYMPHOCYTES ABSOLUTE AUTO 0.62 K/mm3 (0.84-5.20); LYMPHOCYTES PERCENT AUTO 4 % (21-46); MONOCYTES PERCENT AUTO 6 % (4-13); Mean Corpuscular HGB 29.6 pg (26.0-34.0); Mean Corpuscular HGB Conc 33.2 g/dL (31.5-36.5); Mean Corpuscular Volume 89 fL (80-100); Mean Platelet Volume 9.8 fL (9.1-12.4); NEUTROPHILS ABSOLUTE AUTO 13.93 K/mm3 (1.96-9.15); NEUTROPHILS PERCENT AUTO 90 % (41-73); Platelet Count 202 K/mm3 (150-400); RDW Standard Deviation 55.4 fL (35.1-46.3); Red Blood Cell Count 3.21 M/mm3 (4.30-5.90); White Blood Cell Count 15.56 K/mm3 (4.00-11.30)
[2023-05-24 11:11] LABS: Albumin, Blood 2.6 g/dL (3.4-5.0); Albumin/Globulin Ratio 0.8 (0.8-1.8); Bilirubin, Total 1.1 mg/dL (0.1-1.0); Bun/Creatinine Ratio 16.3 (12.0-20.0); Calcium, Blood 8.1 mg/dL (8.5-10.1); Creatinine, Blood 1.72 mg/dL (0.60-1.20); Globulin, Blood 3.3 g/dL (2.2-4.0); Magnesium, Blood 1.4 mg/dL (1.6-2.4); Potassium, Blood 4.1 mmol/L (3.5-5.5); Total Protein, Blood 5.9 g/dL (6.4-8.2)
[2023-05-24 11:44] LABS: Source, Urine Clean Catch
[2023-05-24 11:49] LABS: Appearance, Urine Turbid (Clear); Bilirubin, Urine Neg (Neg); Blood, Urine 4+ (Neg); Color, Urine Yellow (P-Yellow); Glucose Qualitative, Urine Neg (Neg); Ketones, Urine Neg (Neg); Leukocyte Esterase, Urine 3+ (Neg); Nitrite, Urine Neg (Neg); Protein, Urine 3+ (Neg); Specific Gravity, Urine 1.015 (1.003-1.022); Urobilinogen, Urine NORM (Normal)
[2023-05-24 11:56] LABS: Bacteria Many /hpf; Squamous Epithelial Cells Not Seen /hpf (Few); White Blood Cells, Urine TNTC /hpf (0-5)
--- NOTE | 2023-05-24 14:36 | NUR ---
ARRIVAL TO ICU PT BROUGHT TO ICU AT THIS TIME. PT IS ALERT AND ORIENTED. HE HAS BEEN FEELING WEAK AT HOME. BLAKE AT BEDSIDE AND REPORTS INTERMITTENT CONFUSION AND MORE DROWSY. THEY STATE HE RECENTLY HAD A UTI AND TOOK PRESCRIBED ANTIBIOTICS. HE IS AFEBRILE, SHIVERING AT TIMES. PROVIDED WARM BLANKETS. HE IS ON RA WITH SPO2 >95%. LUNGS ARE CLEAR. SINUS TACH ON MONITOR WITH RATE IN 100S-120S. SBP 100S-130S. PT DENIES CP. PT USES URINAL INDEPENDENTLY. HE HAS URGENCY/FREQUENCY AT BASELINE. URINE IS DARK YELLOW. AND DAUGHTER AT BEDSIDE AND ASSISTED WITH ADMISSION HISTORY. DR HOLLINS AT BEDSIDE FOR EVAL.
[2023-05-24] MEDS ORDERED: FURO40 PO (14:53)
[2023-05-24] MEDS ORDERED: ASPI81CH PO (16:27)
[2023-05-24] MEDS ORDERED: HUMALOG KW100 UNIT/1 SC (16:29)
--- NOTE | 2023-05-24 17:48 | NUR ---
SHIFT SUMMARY PT IS ALERT AND ORIENTED WITH PLEASANT AFFECT. HE IS RECEIVING NS 100ML/HR. HE IS SINUS TACH WITH PVCS. RATE 100S-130S. SBP 90S-130S. MAP HAS MAINTAINED >65 SINCE ARRIVAL. PT DENIES CP. ECHO DONE. THIS AFTERNOON PT C/O FEELING SOB. SPO2 >97%, PLACED ON 2L NC FOR COMFORT. PT REPORTS RELIEF. PT CURRENTLY EATING DINNER. HE HAS USED THE URINAL SEVERAL TIMES. BLADDER SCAN SHOWED 179. PT HAS URGENCY/FREQUENCY AND VOIDS 25-100ML AT A TIME. BED IN LOW POSITION, CALL LIGHT WITHIN REACH.
--- NOTE | 2023-05-24 20:00 | NUR ---
ASSUMED CARE PT IS A&O X4; SPO2 >92% ON 2L NC; MAP >65; SINUS TACH. PT DENIES CP, SOB, OR NAUSEA. STATES THAT HE IS "FEELING BETTER, ALREADY". USES URINAL APPROPRIATELY; URINATES 100MLS~ AT A TIME (NORMAL FOR PT). RESTING QUIETLY AT THIS TIME.
--- NOTE | 2023-05-24 21:33 | NUR ---
UPDATE HOSPITALIST SELVIN NOTIFIED ABOUT PT'S HR IN THE 120-130'S AND IRREGULAR RHYTHM. NO NEW ORDERS AT THIS TIME. HOSPITALIST INFORMED THIS RN THAT HE WILL LOOK INTO PT'S CHART AND PUT IN ORDERS IF NEEDED.
--- NOTE | 2023-05-24 22:13 | NUR ---
UPDATE HOSPITALIST SELVIN CALLED TO CLARIFY NEW ORDERS. HOSPITALIST AWARE OF PT'S LIKELY PAROXYSMAL AFIB (PER HOSPIALIST FIDEL); NO NEW ORDERS AT THIS TIME.
[2023-05-24 22:37] LABS: Bun/Creatinine Ratio 18.1 (12.0-20.0); Calcium, Blood 7.9 mg/dL (8.5-10.1); Creatinine, Blood 1.71 mg/dL (0.60-1.20); Magnesium, Blood 1.8 mg/dL (1.6-2.4); Potassium, Blood 4.2 mmol/L (3.5-5.5)
[2023-05-25] VITALS (18 sets, daily range): BP systolic 66–130; BP diastolic 48–88
[2023-05-25 02:09] LABS: Bicarbonate Venous 19.3 mmol/L (24.0-30.0); PCO2 Venous 34.6 mmHg (38-42); pH Blood Venous 7.36 (7.34-7.37)
[2023-05-25 02:12] LABS: Hematocrit 26.2 % (37.0-53.0); Hemoglobin 8.6 g/dL (13.5-17.5); Mean Corpuscular HGB 29.6 pg (26.0-34.0); Mean Corpuscular HGB Conc 32.8 g/dL (31.5-36.5); Mean Corpuscular Volume 90 fL (80-100); Mean Platelet Volume 9.8 fL (9.1-12.4); Platelet Count 162 K/mm3 (150-400); RDW Coefficient Variation 17.2 % (11.7-14.2); Red Blood Cell Count 2.91 M/mm3 (4.30-5.90); White Blood Cell Count 13.38 K/mm3 (4.00-11.30)
[2023-05-25 02:37] LABS: Bun/Creatinine Ratio 18.2 (12.0-20.0); Calcium, Blood 7.9 mg/dL (8.5-10.1); Creatinine, Blood 1.81 mg/dL (0.60-1.20); Magnesium, Blood 1.7 mg/dL (1.6-2.4); Thyroid Stimulating Hormone 1.44 uIU/mL (0.360-4.800)
--- NOTE | 2023-05-25 05:31 | NUR ---
SHIFT SUMMARY PT IS A&O X4; RESTING QUIETLY T/O SHIFT. HR IN THE 100-130'S; MAP >65. PT CONTINUES TO DENY CP, SOB, OR NAUSEA DURING LAST ASSESSMENT AT 0400. SPO2 >92% ON RA; CRACKLES STILL NOTED IN BASES. NO ACUTE EVENTS SINCE LAST NOTE.
--- NOTE | 2023-05-25 09:07 | NUR ---
Izard of Care: Care assumed at 0700hr. Patient sleeping, easily roused to verbal stimuli, alert and oriented x4. Denies pain, discomfort, SOB, or dyspnea. VSS, spO2-98% on RA. Peripheral IV's x2 patent and intact. Voiding using urinal in bed without difficulty. Tolerated PO food and fluids without difficulty. Working with PT at this time. Call light in reach, will continue to monitor.
--- NOTE | 2023-05-25 14:27 | NUR ---
THIS NURSE RECIEVED REPORT FROM ICU NURSE TASIA. AFTER REPORT THIS NURSE HAD NO OTHER QUESTIONS ABOUT THE PATIENT. PATIENT IS NOW IN HIS PCU 18 ROOM. HE WAS A SBA WITH FWW AND GAIT BELT. PATIENT BEFORE BEING TRANSFERRED TO BED USED THE COMMODE AND HAD A LOOSE BM THAT WAS A DARK BROWN/ALMOST BLACK BM. PATIENT HAS NEW ATTENDS AND IS IN BED WITH CALL LIGHT IN REACH.
--- NOTE | 2023-05-25 15:41 | NUR ---
SHIFT SUMMARY: NO SIGNIFICANT CHANGES SINCE ARRIVAL TO UNIT. PATIENT IS A&OX4. PATIENTS SBP IS SOFT BUT IS CURRENTLY RECIEVING IV FLUIDS. OTHERWISE PATIENTS VS ARE WNL AND IS ON RA WITH >90% OXYGEN SATS. PATIENT CONTINUES TO WORK WITH PHYSICAL AND OCCUPATIONAL THERAPY. HE IS A SBA WITH FWW AND GAIT BELT. PATIENT IS TOLERATING PO INTAKE AND IS VOIDING/HAD A BM THIS SHIFT. HE IS LAYING IN BED WITH CALL LIGHT IN REACH.
[2023-05-26 00:11] VITALS: BP 114/68
[2023-05-26 04:02] LABS: Hematocrit 23.5 % (37.0-53.0); Hemoglobin 7.8 g/dL (13.5-17.5); Mean Corpuscular HGB 29.7 pg (26.0-34.0); Mean Corpuscular HGB Conc 33.2 g/dL (31.5-36.5); Mean Corpuscular Volume 89 fL (80-100); Platelet Count 141 K/mm3 (150-400); RDW Coefficient Variation 17.1 % (11.7-14.2); RDW Standard Deviation 55.7 fL (35.1-46.3); Red Blood Cell Count 2.63 M/mm3 (4.30-5.90); White Blood Cell Count 9.03 K/mm3 (4.00-11.30)
[2023-05-26 04:11] VITALS: BP 102/68
[2023-05-26 04:24] LABS: Albumin, Blood 2.1 g/dL (3.4-5.0); Anion Gap 10 mmol/L (6-16); Blood Urea Nitrogen 49 mg/dL (8-24); Bun/Creatinine Ratio 25.3 (12.0-20.0); CO2, Blood 19 mmol/L (21-32); Calcium, Blood 7.4 mg/dL (8.5-10.1); Chloride, Blood 100 mmol/L (98-108); Creatinine, Blood 1.94 mg/dL (0.60-1.20); Glomerular Filtration Rate 33 (60-); Glucose, Blood 150 mg/dL (70-99); Magnesium, Blood 1.7 mg/dL (1.6-2.4); Phosphorus, Blood 3.2 mg/dL (2.5-4.9); Potassium, Blood 4.1 mmol/L (3.5-5.5); Sodium, Blood 129 mmol/L (136-145)
--- NOTE | 2023-05-26 05:56 | NUR ---
SHIFT SUMMARY PATIENT ALERT AND ORIENTED, ABLE TO MAKE NEEDS KNOWN TO STAFF. BP SOFT AT TIMES, TELE READING SR 90s, DENIED CHEST PAIN DURING THE NIGHT, ON RA WITH O2 SAT >95%. ADJUSTING SELF IN BED PERIODICALLY. USING URINAL INDEPENDENTLY WITH ONLY 75-100mls URINE OUT AT A TIME. FLUIDS INFUSING PER EMAR. NO OTHER SIGNIFICANT CHANGES, WILL REPORT TO DAY SHIFT RN.
[2023-05-26 08:24] VITALS: BP 117/82
[2023-05-26 11:05] LABS: Source, Urine Foley catheter
[2023-05-26 11:09] LABS: Appearance, Urine Cloudy (Clear); Bilirubin, Urine Neg (Neg); Blood, Urine 5+ (Neg); Color, Urine Yellow (P-Yellow); Glucose Qualitative, Urine Neg (Neg); Ketones, Urine Neg (Neg); Leukocyte Esterase, Urine 3+ (Neg); Nitrite, Urine Neg (Neg); Protein, Urine 2+ (Neg); Urobilinogen, Urine NORM (Normal)
[2023-05-26 11:22] LABS: Mucus Light (0-Heavy); Transitional Epithelial Cells Rare /hpf (0-Rare)
[2023-05-26 11:23] LABS: Bacteria Rare /hpf; Squamous Epithelial Cells Not Seen /hpf (Few); White Blood Cells, Urine 50-100 /hpf (0-5)
[2023-05-26 11:24] LABS: Red Blood Cells, Urine TNTC /hpf (0-2)
[2023-05-26 12:06] VITALS: BP 104/65
--- NOTE | 2023-05-26 12:14 | NUR ---
REASSESSMENT PT HAS BEEN RESTING IN BED THROUGHOUT THE MORNING OTHER THAN WHEN HE GOT UP TO THE COMMODE. HE REMAINS ALERT AND ORIENTED, CLEAR LUNGS, RA. SR WITH PAC. HE HAS BEEN RETAINING URINE SO DR. HOLLINS ORDERED A POLANCO TO BE PLACED. URINE IN POLANCO IS PALE YELLOW AND CLOUDY. PT HAD 2 BMS THIS AM. PT'S FMAILY VISITED THIS AM AND WAS UPDATED BY DR. HOLLINS AND NURSING STAFF.
--- NOTE | 2023-05-26 15:20 | NUR ---
ASSUMED CARE: PT TRANSFERRED TO ROOM 325 VIA WHEEL CHAIR. REPORT RECIEVED FROM ASHER SHEPARD. PT ON RA, NO TELE, POLANCO IN PLACE WITH CLOUDY YELLOW URINE. DENIES FURTHER NEEDS OR CONCERNS. CALL LIGHT IN REACH
--- NOTE | 2023-05-26 15:27 | NUR ---
transfer Pt transferring to medical floor, room 325. Report given to DREA Epps. Pt's family in the room before transfer and were updated on pt status as well as his new room number. Pt transferred via wc. Pt's took his clothes home to wash. All other belongings transferred with pt. Pt tolerated transfer well.
--- NOTE | 2023-05-26 15:27 | NUR ---
TELEMETRY: NSR AT 81 PER JUVENAL IN TELE
[2023-05-26 15:28] VITALS: BP 104/71
--- NOTE | 2023-05-26 17:39 | NUR ---
SHIFT SUMMARY: PT HAS BEEN RESTING IN BED AND UP WITH 1 ASSIST WITH FWW TO COMMODE SINCE TRANSFER. REMAINS NSR ON TELE. NO NEEDS OR CONCERNS AT THIS TIME. CALL LIGHT IN REACH.
[2023-05-26 20:13] VITALS: BP 110/74
[2023-05-27 03:27] VITALS: BP 114/89
[2023-05-27 04:59] LABS: Hematocrit 24.9 % (37.0-53.0); Hemoglobin 8.2 g/dL (13.5-17.5); Mean Corpuscular HGB 29.2 pg (26.0-34.0); Mean Corpuscular HGB Conc 32.9 g/dL (31.5-36.5); Mean Corpuscular Volume 89 fL (80-100); Mean Platelet Volume 10.4 fL (9.1-12.4); Platelet Count 130 K/mm3 (150-400); RDW Coefficient Variation 17.2 % (11.7-14.2); RDW Standard Deviation 56.3 fL (35.1-46.3); Red Blood Cell Count 2.81 M/mm3 (4.30-5.90); White Blood Cell Count 6.97 K/mm3 (4.00-11.30)
--- NOTE | 2023-05-27 05:11 | NUR ---
SHIFT SUMMARY NOC PT A/O X 4. PLEASANT AND COOPERATIVE WITH CARE. NO ACUTE CHANGES TO REPORT. PT HAS POLANCO IN PLACE FOR RETENTION DRAINING CLOUDY URINE TO GRAVITY. ON TELE NSR @ 84 BPM. PT RECEIVING IV ABX FOR UTI WELL NS INFUSING @ 75 ML/HR. HS CBG 153 AND PT RECEIVED NO COVERAGE OF SHORT ACTING INSULIN, BUT RECEIVED SCHEDULED 20 UNITS LONG ACTING INSULIN. AWAITING AM RENAL PANEL TO CHECK FOR IMPROVEMENT, BUT IF RENAL FUNCTION WORSENS PROVIDER WILL PUT NEPHROLOGY CONSULT IN. PT IS CURRENTLY RESTING WITH BED IN LOWEST POSITION, AND CALL LIGHT WITHIN REACH.
[2023-05-27 05:31] LABS: Bun/Creatinine Ratio 29.7 (12.0-20.0); Calcium, Blood 7.5 mg/dL (8.5-10.1); Creatinine, Blood 1.72 mg/dL (0.60-1.20); Potassium, Blood 4.3 mmol/L (3.5-5.5)
[2023-05-27 07:39] VITALS: BP 109/72
[2023-05-27] MEDS ORDERED: METO25 PO (10:15)
[2023-05-27] MEDS ORDERED: VISBIOME 112.51 EACH PO (10:16)
[2023-05-27] MEDS ORDERED: CEPH500 PO (10:16)
== END 2023-05-27 12:38 | disposition home or self-care (01) | DRG 871 ==
LOC: ER 10:12 → MEDS 12:15 → ICUE 12:15 → PCU 05-25 14:09 → MEDS 05-26 15:11
PROVIDERS: Nurse Practitioner Acute Care; Student in an Organized Health Care Education/Training Program; ADMIT Internal Medicine
PROC: 3E03329 Introduction of Other Anti-infective into Peripheral Vein, Percutaneous Approach (ICD-10-PCS; 2023-05-25)
PROC: 0T9B70Z Drainage of Bladder with Drainage Device, Via Natural or Artificial Opening (ICD-10-PCS; principal; 2023-05-26)
DX: A41.50 Gram-negative sepsis, unspecified (principal); G92.8 Other toxic encephalopathy; I21.A1 Myocardial infarction type 2; N17.9 Acute kidney failure, unspecified; E87.1 Hypo-osmolality and hyponatremia; N13.6 Pyonephrosis; I13.0 Hypertensive heart and chronic kidney disease with heart failure and stage 1 through stage 4 chronic kidney disease, or unspecified chronic kidney disease; I50.32 Chronic diastolic (congestive) heart failure; E87.20 Acidosis, unspecified; R65.20 Severe sepsis without septic shock; E78.5 Hyperlipidemia, unspecified; E83.42 Hypomagnesemia; I48.0 Paroxysmal atrial fibrillation; R54 Age-related physical debility; D63.1 Anemia in chronic kidney disease; E86.0 Dehydration; E11.22 Type 2 diabetes mellitus with diabetic chronic kidney disease; N18.30 Chronic kidney disease, stage 3 unspecified; N25.89 Other disorders resulting from impaired renal tubular function; D69.6 Thrombocytopenia, unspecified; B96.89 Other specified bacterial agents as the cause of diseases classified elsewhere; Z88.8 Allergy status to other drugs, medicaments and biological substances; Z79.82 Long term (current) use of aspirin; Z79.4 Long term (current) use of insulin; Z79.2 Long term (current) use of antibiotics; Z79.899 Other long term (current) drug therapy; Z85.46 Personal history of malignant neoplasm of prostate; Z90.49 Acquired absence of other specified parts of digestive tract; Z90.89 Acquired absence of other organs; Z87.891 Personal history of nicotine dependence; Z98.890 Other specified postprocedural states; Z92.3 Personal history of irradiation
CPT/HCPCS: 36415; 71045; 76770; 80048; 80053; 80069; 81001; 82330; 82803; 82947; 83605; 83735; 83880; 84443; 84484; 85025; 85027; 87040; 87077; 87086; 87186; 93005; 93010; 93306; 96361; 96365-59; 96375-59; 97110; 97161; 97166; 97530; 97535; 99285-25; A9270; J0696; J1650; J1815; J1885; J1940; J3475; J7030; J7040; J7050; J7060

== ENCOUNTER 2023-10-21 16:50 | Emergency (ER) | payer MEDICARE ==
[~2023-10-21] VITALS: Ht 180.3 cm; Wt 70.3 kg
[~2023-10-21 16:50] MED LIST changes: +ASPI81CH PO; +CEPH500 PO; +FURO40 PO; +HUMALOG KW100 UNIT/1 SC
[2023-10-21] MEDS ORDERED: METO25ER PO (18:03)
[2023-10-21] MEDS ORDERED: TROSPIUM CHLORI20 M1 PO (18:04)
[2023-10-21] MEDS ORDERED: SODCHL1 PO (18:05)
[2023-10-21] MEDS ORDERED: ATOR40TA PO (18:05)
[2023-10-21] MEDS ORDERED: TAMSULOSIN HCL0.4 M1 PO (18:05)
[2023-10-21] MEDS ORDERED: JARDIANCE10 MG PO (18:06)
[2023-10-21] MEDS ORDERED: VITAMIN D350 MC3 PO (18:07)
[2023-10-21] MEDS ORDERED: IRON18 MG PO (18:08)
[2023-10-21 18:30] VITALS: BP 94/55
== END 2023-10-21 19:11 | disposition home or self-care (01) ==
LOC: ER 16:50
DX: R33.9 Retention of urine, unspecified (principal); C61 Malignant neoplasm of prostate; R31.9 Hematuria, unspecified; E11.9 Type 2 diabetes mellitus without complications; E78.5 Hyperlipidemia, unspecified; I10 Essential (primary) hypertension; Z87.891 Personal history of nicotine dependence; Z79.82 Long term (current) use of aspirin; Z79.4 Long term (current) use of insulin; Z79.899 Other long term (current) drug therapy; Z88.8 Allergy status to other drugs, medicaments and biological substances; Z96.0 Presence of urogenital implants
CPT/HCPCS: 51798; 99283-25

== ENCOUNTER 2023-10-22 23:36 | Emergency (ER) | payer MEDICARE ==
[~2023-10-22] VITALS: Ht 175.3 cm; Wt 70.3 kg
[2023-10-22 23:56] VITALS: BP 140/58
== END 2023-10-23 03:30 | disposition home or self-care (01) ==
LOC: ER 23:36
DX: T83.098A Other mechanical complication of other urinary catheter, initial encounter (principal); Y84.6 Urinary catheterization as the cause of abnormal reaction of the patient, or of later complication, without mention of misadventure at the time of the procedure; I10 Essential (primary) hypertension; E11.9 Type 2 diabetes mellitus without complications; E78.5 Hyperlipidemia, unspecified; Z88.8 Allergy status to other drugs, medicaments and biological substances; Z79.82 Long term (current) use of aspirin; Z79.899 Other long term (current) drug therapy; Z87.891 Personal history of nicotine dependence
CPT/HCPCS: 51798; 99283

== ENCOUNTER → 2023-10-22 | Outpatient (CLI) | payer MEDICARE ==
[~2023-10-22] MED LIST changes: +IRON18 MG PO; +JARDIANCE10 MG PO; +METO25ER PO; +SODCHL1 PO; +TAMSULOSIN HCL0.4 M1 PO; +TROSPIUM CHLORI20 M1 PO; +VITAMIN D350 MC3 PO
== END ==
LOC: LAB SHORT 23:03 → LAB 23:03
DX: R31.9 Hematuria, unspecified (principal)
CPT/HCPCS: 87086

== ENCOUNTER 2023-11-02 20:37 | Emergency (ER) | payer MEDICARE ==
[~2023-11-02] VITALS: Ht 175.3 cm; Wt 70.3 kg
[2023-11-02 21:29] LABS: BASOPHILS ABSOLUTE AUTO 0.02 K/mm3 (0.00-0.23); BASOPHILS PERCENT AUTO 0 % (0-2); EOSINOPHILS ABSOLUTE AUTO 0.26 K/mm3 (0.00-0.68); EOSINOPHILS PERCENT AUTO 4 % (0-6); Hematocrit 20.6 % (37.0-53.0); Hemoglobin 6.5 g/dL (13.5-17.5); IMMATURE GRAN ABSOLUTE AUTO 0.02 K/mm3 (0.00-0.10); IMMATURE GRAN PERCENT AUTO 0 % (0-1); LYMPHOCYTES PERCENT AUTO 9 % (21-46); MONOCYTES ABSOLUTE AUTO 0.28 K/mm3 (0.16-1.47); MONOCYTES PERCENT AUTO 4 % (4-13); Mean Corpuscular HGB 30.8 pg (26.0-34.0); Mean Corpuscular HGB Conc 31.6 g/dL (31.5-36.5); Mean Corpuscular Volume 98 fL (80-100); Mean Platelet Volume 10.2 fL (9.1-12.4); NEUTROPHILS ABSOLUTE AUTO 5.68 K/mm3 (1.96-9.15); NEUTROPHILS PERCENT AUTO 83 % (41-73); Platelet Count 182 K/mm3 (150-400); RDW Coefficient Variation 17.9 % (11.7-14.2); RDW Standard Deviation 64.8 fL (35.1-46.3); Red Blood Cell Count 2.11 M/mm3 (4.30-5.90); White Blood Cell Count 6.86 K/mm3 (4.00-11.30)
[2023-11-02 21:37] LABS: Magnesium, Blood 2.2 mg/dL (1.6-2.4)
[2023-11-02 21:39] LABS: Source, Urine Clean Catch
[2023-11-02 21:39] LABS: Albumin, Blood 2.7 g/dL (3.4-5.0); Albumin/Globulin Ratio 0.8 (0.8-1.8); Bilirubin, Total 0.4 mg/dL (0.1-1.0); Bun/Creatinine Ratio 20.1 (12.0-20.0); Calcium, Blood 7.9 mg/dL (8.5-10.1); Creatinine, Blood 2.29 mg/dL (0.60-1.20); Globulin, Blood 3.3 g/dL (2.2-4.0); Potassium, Blood 4.6 mmol/L (3.5-5.5)
[2023-11-02 21:42] LABS: Bilirubin, Urine Neg (Neg); Blood, Urine 5+ (Neg); Glucose Qualitative, Urine 3+ (Neg); Ketones, Urine 1+ (Neg); Leukocyte Esterase, Urine Neg (Neg); Nitrite, Urine Neg (Neg); Protein, Urine 4+ (Neg); Urobilinogen, Urine NORM (Normal)
[2023-11-02 21:49] LABS: International Normalized Ratio 1.06; Prothrombin Time Results 11.1 Sec (9.7-11.5)
[2023-11-02 21:52] LABS: Appearance, Urine Bloody (Clear); Bacteria Rare /hpf; Color, Urine Red (P-Yellow); Red Blood Cells, Urine 25-50 /hpf (0-2); Squamous Epithelial Cells Not Seen /hpf (Few); White Blood Cells, Urine TNTC /hpf (0-5)
[2023-11-02 22:06] LABS: Base Excess Venous -9.7 mmol/L; Bicarbonate Venous 17.1 mmol/L (24.0-30.0); PCO2 Venous 33.8 mmHg (38-42)
[2023-11-02] MEDS ORDERED: NS 1,000 ML IV SCH (22:15)
[2023-11-02] MEDS ORDERED: Tranexamic Acid 1000 MG/10 ML 10ML Vial (SDV) TOP ONE (23:30)
[2023-11-02] MEDS ORDERED: Lidocaine 2% Jelly Uro-Jet UR ONE (23:30)
[2023-11-03 02:12] LABS: Hematocrit 22.4 % (37.0-53.0); Hemoglobin 7.3 g/dL (13.5-17.5); Mean Corpuscular HGB 30.8 pg (26.0-34.0); Mean Corpuscular HGB Conc 32.6 g/dL (31.5-36.5); Mean Corpuscular Volume 95 fL (80-100); Mean Platelet Volume 9.8 fL (9.1-12.4); Platelet Count 186 K/mm3 (150-400); RDW Coefficient Variation 18.6 % (11.7-14.2); RDW Standard Deviation 64.3 fL (35.1-46.3); Red Blood Cell Count 2.37 M/mm3 (4.30-5.90); White Blood Cell Count 6.64 K/mm3 (4.00-11.30)
[2023-11-03 06:45] VITALS: BP 100/61
== END 2023-11-03 06:50 | disposition short-term general hospital (02) ==
LOC: ER 20:37
PROVIDERS: Physician Assistant; Student in an Organized Health Care Education/Training Program
DX: R31.0 Gross hematuria (principal); N32.89 Other specified disorders of bladder; D62 Acute posthemorrhagic anemia; N17.9 Acute kidney failure, unspecified; N28.9 Disorder of kidney and ureter, unspecified; E87.20 Acidosis, unspecified; E87.1 Hypo-osmolality and hyponatremia; Z88.8 Allergy status to other drugs, medicaments and biological substances; Z79.899 Other long term (current) drug therapy; E11.9 Type 2 diabetes mellitus without complications; E78.5 Hyperlipidemia, unspecified; I10 Essential (primary) hypertension; Z87.891 Personal history of nicotine dependence
CPT/HCPCS: 36430; 51700; 51702; 51798; 74174; 80053; 81001; 82010; 82803; 83605; 83735; 85025; 85027; 85610; 85730; 86850; 86900; 86901; 86923; 87086; 93005; 93010; 99285-25; J7030; P9016; Q9967

== ENCOUNTER → 2023-11-08 | Outpatient (CLI) | payer MEDICARE ==
[2023-11-08 14:35] LABS: BASOPHILS ABSOLUTE AUTO 0.02 K/mm3 (0.00-0.23); BASOPHILS PERCENT AUTO 0 % (0-2); EOSINOPHILS ABSOLUTE AUTO 0.53 K/mm3 (0.00-0.68); EOSINOPHILS PERCENT AUTO 7 % (0-6); Hematocrit 26.7 % (37.0-53.0); Hemoglobin 8.4 g/dL (13.5-17.5); IMMATURE GRAN ABSOLUTE AUTO 0.02 K/mm3 (0.00-0.10); IMMATURE GRAN PERCENT AUTO 0 % (0-1); LYMPHOCYTES ABSOLUTE AUTO 0.75 K/mm3 (0.84-5.20); LYMPHOCYTES PERCENT AUTO 10 % (21-46); MONOCYTES ABSOLUTE AUTO 0.33 K/mm3 (0.16-1.47); MONOCYTES PERCENT AUTO 4 % (4-13); Mean Corpuscular HGB 30.4 pg (26.0-34.0); Mean Corpuscular HGB Conc 31.5 g/dL (31.5-36.5); Mean Corpuscular Volume 97 fL (80-100); Mean Platelet Volume 10.6 fL (9.1-12.4); NEUTROPHILS ABSOLUTE AUTO 6.15 K/mm3 (1.96-9.15); NEUTROPHILS PERCENT AUTO 79 % (41-73); Platelet Count 184 K/mm3 (150-400); RDW Coefficient Variation 19.6 % (11.7-14.2); RDW Standard Deviation 67.2 fL (35.1-46.3); Red Blood Cell Count 2.76 M/mm3 (4.30-5.90)
[2023-11-08 14:49] LABS: Ferritin, Serum 86 ng/mL (26-388); Total Iron Binding Capacity 43 ug/dL (250-450)
[2023-11-08 15:05] LABS: Iron Serum <5 ug/dL (65-175)
[2023-11-08 15:07] LABS: Percent Saturation Unable to Calculate % (20.0-50.0)
== END ==
LOC: LAB 13:33 → LAB SHORT 13:33
PROVIDERS: Family Medicine
DX: D62 Acute posthemorrhagic anemia (principal)
CPT/HCPCS: 82728; 83540; 83550; 85025